=== PATIENT | male | born 1955 | race Caucasian/White ===

== ENCOUNTER 2017-04-27 12:22 | Inpatient (IN) | payer OTHER, MEDICAID ==
[2017-04-23 08:36] VITALS: BMI 28.5
[2017-04-27] MEDS ORDERED: cefTRIAXone IV 1 gm in Dextros 50 ML IVPB ONE (16:05)
[2017-04-27] MEDS ORDERED: Iohexol 240 (50 ml) ONE (16:05)
[2017-04-27] MEDS ORDERED: Lactated Ringer's 1,000 ML IV ONE ×2 (16:08→17:57)
[2017-04-27] MEDS ORDERED: Propofol 10 mg/ml Inj (20 ML) ONE (16:08)
[2017-04-27] MEDS: HYDROmorphone 0.5 mg/0.5 ml ISec IVP PRN ×4 (17:41→18:32)
[2017-04-27] MEDS: Oxycodone/Acetaminophen 5/325 mg Tab PO PRN (19:41)
[2017-04-27] MEDS ORDERED: HYDROmorphone 0.5 mg/0.5 ml ISec IVP STA (19:55)
[2017-04-27] MEDS ORDERED: Dextrose 5%/0.45% NS 1,000 ML IV ONE (20:00)
--- NOTE | 2017-04-27 20:53 | CP.PCM.CON ---
Addendum entered and electronically signed by Mariia Warner 04/28/17 02:01: Please note patient was started on Crestor 5mg po hs not 10mg Original Note: <Mariia Warner - Last Filed: 04/28/17 01:07> History of Present Illness - History of Present Illness History of Present Illness: HPI: 61 year old male PMHx CAD s/p 3 stents, HTN, IDDM, bladder tumor, hematuria , and elevated PSA POD#0 retrograde cystoscopy with stent insertion and transurethral resection of bladder. Medicine was consulted for management of DM2 and cardiac history. Patient reports postop abdominal pain that radiates to both flanks and his testicles. Patient also reports some nausea and vomiting and had one episode of nonbloody nonbilious emesis post op. He also reports some back pain which is constant as patient has 3 disc herniations. He reports a fullness in his lower abdomen and feels like everything he is taking in [IVF, PO drinks] is not coming out. He reports the postop pain is 6-7/10 and sharp and constant. Patient has a santos in place that has drained 150cc serosanguinous fluid and Dr. Espinal is aware. On ROS patient denied fever, chills, headache, dizziness, lightheadedness, blurry vision, ear pain, sore throat, dysphagia, chest pain, palpitations, SOB, cough, diarrhea, constipation , pain/swelling in legs bilaterally, bruising, bleeding, recent travel, recent sickness, sick contacts, change in weight, change in appetite. PMD: Dr. Matamoros in [place] PMH: CAD, HTN, IDDM, bladder tumor, hematuria, elevated PSA Surgical Hx: 3 cardiac stents placed, most recent stent placed in 09/2016 Family Hx: Father - CVA/TN? patient unsure Social Hx: Denies alcohol, tobacco, or illicit drug use. Used to smoke 3 years ago since he was 23 years old and would smoke 10cigarettes/day. Does not work and lives with . Allergies: NKDA Medication: ASA [on hold], Plavix [on hold], Novolog, unsure of other medications. Last hospitalized: March 2017 at [facility] for clogged urinary catheter and hematuria. CT Abd/Pelvis showed bladder mass and lesion on R kidney. Patient was discharged from the ED the day prior to arrival with Keflex and follow up with Dr. Espinal, however, he returned due to urine leak around catheter. Patient was taken to the OR for cystoscopy by Urology, Dr. Espinal, who replaced santos and kept patient overnight for monitoring. Santos output cleared up. Patient was asked to hold Asa/Plavix until follow up with Dr. 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 Patient hospital course was complicated with him having purulent drainage expressed from around the catheter. Patient was discharged on Cipro 500mg po bid for 7 days for lower UTI and Percocet for pain and told to follow up with Dr. Espinal. Review of Systems - Constitutional Constitutional: As Per HPI. absent: Chills, Fever, Headache - EENT Eyes: As Per HPI. absent: Blurred Vision Ears: As Per HPI. absent: Ear Pain, Dizziness Nose/Mouth/Throat: As Per HPI. absent: Dysphagia, Sore Throat - Cardiovascular Cardiovascular: As Per HPI. absent: Chest Pain, Dyspnea, Edema, Palpitations - Respiratory Respiratory: As Per HPI. absent: Cough, Dyspnea on Exertion - Gastrointestinal Gastrointestinal: As Per HPI, Abdominal Pain, Nausea, Vomiting (1 episode- nonbloody nonbilious). absent: Constipation, Cramping, Diarrhea - Genitourinary Genitourinary: As Per HPI, Flank Pain, Hematuria, Bladder Distension. absent: Pyuria Additional comments: floey in place ~150cc serosangunious fluid - Musculoskeletal Musculoskeletal: As Per HPI. absent: Numbness, Tingling - Integumentary Integumentary: As Per HPI. absent: Dry Skin, Rash - Neurological Neurological: As Per HPI. absent: Dizziness, Numbness, Tingling - Psychiatric Psychiatric: As Per HPI. absent: Anxiety, Depression - Endocrine Endocrine: As Per HPI. absent: Polydipsia, Polyphagia, Polyuria - Hematologic/Lymphatic Hematologic: As Per HPI. absent: Easy Bruising, Lymphadenopathy Past Patient History - Past Medical History & Family History Past Medical History?: Yes - Past Social History Smoking Status: Never Smoked - CARDIAC Hx Cardiac Disorders: Yes (CAD STENTS LAST INSERTION SEP 2016) Hx Heart Attack: Yes (2000 PER PT) Hx Hypercholesterolemia: Yes - HEENT Hx HEENT Problems: Yes Hx Cataracts: Yes (BILAT IOL) - ENDOCRINE/METABOLIC Hx Endocrine Disorders: Yes Hx Diabetes Mellitus Type 2: Yes - GENITOURINARY/GYNECOLOGICAL Hx Genitourinary Disorders: Yes (BLADDER TUMOR) Hx Hematuria: Yes - SURGICAL HISTORY Hx Surgeries: Yes Hx Cataract Extraction: Yes Hx Cardiac Catheterization: Yes Hx Coronary Stent: Yes Other/Comment: CYSTOSCOPY - ANESTHESIA Hx Anesthesia: Yes Hx Anesthesia Reactions: No Hx Malignant Hyperthermia: No Has any member of the family had a problem w/ anesthesia?: No Meds Allergies/Adverse Reactions: Allergies Allergy/AdvReac Type Severity Reaction Status Date / Time No Known Allergies Allergy Unverified 04/01/17 09:15 - Medications Medications: Current Medications Dextrose/Sodium Chloride (Dextrose 5%/0.45% Ns 1000 Ml) 1,000 mls @ 100 mls/hr IV .Q10H [facility] Oxycodone/Acetaminophen (Percocet 5/325 Mg Tab) 1 tab PO Q6H PRN PRN Reason: Bladder Spasm Stop: 04/30/17 17:22 Last Admin: 04/27/17 19:41 Dose: 1 tab Physical Exam - Constitutional Appears: Non-toxic, In Acute Distress (secondary to abd pain/fullness) - Head Exam Head Exam: ATRAUMATIC, NORMAL INSPECTION, NORMOCEPHALIC - Eye Exam Eye Exam: EOMI, Normal appearance, PERRL. absent: Conjunctival injection, Scleral icterus Pupil Exam: NORMAL ACCOMODATION - ENT Exam ENT Exam: Mucous Membranes Moist - Neck Exam Neck exam: Positive for: Full Rom, Normal Inspection. Negative for: Lymphadenopathy, Tenderness - Respiratory Exam Respiratory Exam: Clear to Auscultation Bilateral, NORMAL BREATHING PATTERN. absent: Accessory Muscle Use, Rales, Rhonchi, Wheezes - Cardiovascular Exam Cardiovascular Exam: Tachycardia, REGULAR RHYTHM, +S1, +S2. absent: Systolic Murmur - GI/Abdominal Exam GI & Abdominal Exam: Normal Bowel Sounds, Soft, Tenderness (lower abdomen b/l). absent: Distended, Firm, Guarding, Rigid - Rectal Exam Rectal Exam: Deferred - Exam Additional comments: santos in place drained 150cc serosanguinous fluid - Extremities Exam Extremities exam: Positive for: normal capillary refill, normal inspection, pedal pulses present. Negative for: pedal edema, tenderness - Back Exam Back exam: NORMAL INSPECTION. absent: rash noted - Neurological Exam Neurological exam: Alert, Oriented x3 - Psychiatric Exam Psychiatric exam: Normal Affect, Normal Mood - Skin Skin Exam: Dry, Intact, Normal Color, Warm Results - Vital Signs Recent Vital Signs: Last Vital Signs Temp 97.6 F 04/27/17 18:45 Pulse 78 04/27/17 19:15 Resp 17 04/27/17 19:15 BP 142/94 H 04/27/17 19:15 Pulse Ox 100 04/27/17 19:15 - Labs Labs: Laboratory Results - last 24 hr 04/27/17 04/27/17 04/27/17 13:07 19:07 19:22 POC Glucose (mg/dL) 75 60 L 64 L 04/27/17 04/27/17 19:46 20:45 POC Glucose (mg/dL) 93 190 H Assessment & Plan - Assessment and Plan (Free Text) Assessment: 61 year old male PMHx CAD s/p 3 stents, HTN, IDDM, bladder tumor, hematuria, and elevated PSA POD#0 retrograde cystoscopy with stent insertion and transurethral resection of bladder. Plan: Bladder tumor and hematuria -POD#0 retrograde cystoscopy with stent insertion and transurethral resection of bladder -f/u abdominal x-ray -Managed by Dr. Espinal -Pain meds as per Dr. Espinal Dilaudid 2mg sc q4 prn pain Oxycodone 1 tab po q6 prn pain Hx CAD s/p 3 stents -ASA and plavix on hold -f/u lipid panel -f/u AM labs -Crestor 10mg po hs -Norvasc 5mg po daily Hx HTN -Norvasc 5mg po daily -Monitor BP Hx IDDM -Accucheck -RISS -Lantus 60U -D5NS @ 100cc/hr -Neurontin 300mg po daily -f/u HgbA1c Hx elevated PSA -f/u AM PSA PPX -SCDs -Pepcid 20mg po bid -VTE ppx on hold -Moderate consistent carb diet -Zofran 4mg ivp q6 prn nausea/vomiting Plan discussed with Dr. Archana Warner PGY1 <Nuno Magaña - Last Filed: 04/28/17 06:27> Meds - Medications Medications: Current Medications Amlodipine Besylate (Norvasc) 5 mg PO DAILY [facility] Famotidine (Pepcid) 20 mg PO BID [facility] Gabapentin (Neurontin) 300 mg PO DAILY [facility] Hydromorphone HCl (Dilaudid) 2 mg SC Q4H PRN PRN Reason: Pain, moderate (4-7) Last Admin: 04/28/17 03:18 Dose: 2 mg Dextrose/Sodium Chloride (Dextrose 5%/0.45% Ns 1000 Ml) 1,000 mls @ 100 mls/hr IV .Q10H [facility] Last Admin: 04/28/17 03:19 Dose: 100 mls/hr Insulin Aspart (Novolog) 0 unit SC ACHS [facility] PRN Reason: Protocol Insulin Glargine (Lantus) 60 unit SC HS PRN PRN Reason: Serum glucose Ondansetron HCl (Zofran Inj) 4 mg IVP Q6H PRN PRN Reason: Nausea/Vomiting Oxycodone/Acetaminophen (Percocet 5/325 Mg Tab) 1 tab PO Q6H PRN PRN Reason: Bladder Spasm Stop: 04/30/17 17:22 Last Admin: 04/27/17 19:41 Dose: 1 tab Rosuvastatin Calcium (Crestor) 5 mg PO HS [facility] Results - Vital Signs Recent Vital Signs: Last Vital Signs Temp 98.4 F 04/27/17 23:15 Pulse 68 04/27/17 23:15 Resp 20 04/27/17 23:15 BP 159/78 H 04/27/17 23:15 Pulse Ox 95 04/27/17 23:15 - Labs Result Diagrams: 04/28/17 01:18 04/28/17 01:18 Labs: Laboratory Results - last 24 hr 04/27/17 04/27/17 04/27/17 13:07 19:07 19:22 WBC RBC Hgb Hct MCV MCH MCHC RDW Plt Count MPV Neut % (Auto) Lymph % (Auto) Eagle % (Auto) Eos % (Auto) Baso % (Auto) Neut # Lymph # Eagle # Eos # Baso # Neutrophils % (Manual) Lymphocytes % (Manual) Monocytes % (Manual) Platelet Estimate Poikilocytosis (manual Anisocytosis (manual) Microcytosis (manual) Sodium Potassium Chloride Carbon Dioxide Anion Gap BUN Creatinine Est GFR ( Amer) Est GFR (Non-Af Amer) POC Glucose (mg/dL) 75 60 L 64 L Random Glucose Calcium Phosphorus Magnesium Total Bilirubin AST ALT Alkaline Phosphatase Total Protein Albumin Globulin Albumin/Globulin Ratio 04/27/17 04/27/17 04/27/17 19:46 20:45 23:20 WBC RBC Hgb Hct MCV MCH MCHC RDW Plt Count MPV Neut % (Auto) Lymph % (Auto) Eagle % (Auto) Eos % (Auto) Baso % (Auto) Neut # Lymph # Eagle # Eos # Baso # Neutrophils % (Manual) Lymphocytes % (Manual) Monocytes % (Manual) Platelet Estimate Poikilocytosis (manual Anisocytosis (manual) Microcytosis (manual) Sodium Potassium Chloride Carbon Dioxide Anion Gap BUN Creatinine Est GFR ( Amer) Est GFR (Non-Af Amer) POC Glucose (mg/dL) 93 190 H 215 H Random Glucose Calcium Phosphorus Magnesium Total Bilirubin AST ALT Alkaline Phosphatase Total Protein Albumin Globulin Albumin/Globulin Ratio 04/28/17 04/28/17 04/28/17 01:18 01:18 03:23 WBC 10.1 D RBC 4.54 Hgb 10.8 L D Hct 33.9 L MCV 74.7 L D MCH 23.8 L MCHC 31.9 L RDW 17.7 H Plt Count 249 MPV 9.0 Neut % (Auto) 84.3 H Lymph % (Auto) 9.9 L Eagle % (Auto) 5.5 Eos % (Auto) 0.2 Baso % (Auto) 0.1 Neut # 8.5 H Lymph # 1.0 Eagle # 0.6 Eos # 0.0 Baso # 0.0 Neutrophils % (Manual) 82 H Lymphocytes % (Manual) 13 L Monocytes % (Manual) 5 Platelet Estimate Normal Poikilocytosis (manual Slight Anisocytosis (manual) Moderate Microcytosis (manual) Slight Sodium 133 Potassium 4.3 Chloride 100 Carbon Dioxide 25 Anion Gap 13 BUN 12 Creatinine 0.8 Est GFR ( Amer) > 60 Est GFR (Non-Af Amer) > 60 POC Glucose (mg/dL) 251 H Random Glucose 196 H Calcium 8.5 L Phosphorus 3.3 Magnesium 1.5 L Total Bilirubin 0.7 AST 18 ALT 27 Alkaline Phosphatase 63 Total Protein 6.9 Albumin 3.7 Globulin 3.1 Albumin/Globulin Ratio 1.2 Assessment & Plan - Date & Time Date: 04/28/17 (I have seen and examined the patient. I agree with the findings and plan of care as documented by Dr. Warner. Patient with bladder tumor. S/P procedure by Dr. Espinal. Consult for history of CAD, hypertension , and diabetes. Continue home meds. Accucheck. NISS. Monitor for acute changes.) Time: 06:26 Attending/Attestation - Attestation I have personally seen and examined this patient.: Yes I have fully participated in the care of the patient.: Yes I have reviewed all pertinent clinical information: Yes
[2017-04-28] MEDS ORDERED: (Lantus) Insulin Glargine, Recombinant SC PRN (00:27)
[2017-04-28 01:25] LABS: BASO % 0.1 % (0.0-2.0); EOS % 0.2 % (0.0-4.0); HEMATOCRIT 33.9 % (35.0-51.0); LYMPH % 9.9 % (20.0-40.0); MEAN CELL VOLUME 74.7 fL (80.0-94.0); MEAN CORPUSCULAR HEMOGLOBIN 23.8 pg (27.0-31.0); MEAN CORPUSCULAR HGB CONC 31.9 g/dL (33.0-37.0); MONO # 0.6 K/uL (0.0-0.8); MONO % 5.5 % (0.0-10.0); NRBC % 0.1 % (0.0-2.0); PLATELET COUNT 249 K/uL (130-400); RED CELL DISTRIBUTION WIDTH 17.7 % (11.5-14.5); WHITE BLOOD COUNT 10.1 K/uL (4.8-10.8)
[2017-04-28 01:31] LABS: CHLORIDE 100 mmol/L (98-107); SODIUM 133 mmol/L (132-148)
[2017-04-28 01:32] LABS: POTASSIUM 4.3 mmol/L (3.6-5.2)
[2017-04-28 01:34] LABS: ALB/GLOB RATIO 1.2 (1.0-2.1); ALKALINE PHOSPHATASE 63 U/L (38-126); AST/SGOT 18 U/L (17-59); BILIRUBIN,TOTAL 0.7 mg/dL (0.2-1.3); BLOOD UREA NITROGEN 12 mg/dL (9-20); CARBON DIOXIDE 25 mmol/L (22-30); GFR AFRICAN-AMERICAN > 60; GLUCOSE,RANDOM 196 mg/dL (75-110); PHOSPHOROUS 3.3 mg/dL (2.5-4.5); TOTAL PROTEIN 6.9 g/dL (6.3-8.3)
[2017-04-28 01:35] LABS: ALT/SGPT 27 U/L (21-72); CALCIUM 8.5 mg/dl (8.6-10.4); MAGNESIUM 1.5 mg/dL (1.6-2.3)
[2017-04-28 02:07] LABS: NEUTROPHIL 82 % (50-75); TOTAL CELLS COUNTED 100
[2017-04-28] MEDS: Dextrose 5%/0.45% NS 1,000 ML IV SCH ×2 (03:19→13:52)
[2017-04-28 07:31] LABS: BASO % 0.4 % (0.0-2.0); EOS # 0.1 K/uL (0.0-0.7); EOS % 0.6 % (0.0-4.0); HEMATOCRIT 32.5 % (35.0-51.0); LYMPH # 1.7 K/uL (1.0-4.3); LYMPH % 18.9 % (20.0-40.0); MEAN CELL VOLUME 74.5 fL (80.0-94.0); MEAN CORPUSCULAR HEMOGLOBIN 24.2 pg (27.0-31.0); MEAN CORPUSCULAR HGB CONC 32.4 g/dL (33.0-37.0); MEAN PLATELET VOLUME 9.2 fL (7.2-11.7); MONO # 0.7 K/uL (0.0-0.8); MONO % 7.7 % (0.0-10.0); NRBC % 0.1 % (0.0-2.0); RED CELL DISTRIBUTION WIDTH 17.6 % (11.5-14.5); WHITE BLOOD COUNT 9.1 K/uL (4.8-10.8)
[2017-04-28 08:09] LABS: SODIUM 135 mmol/L (132-148)
[2017-04-28 08:11] LABS: CARBON DIOXIDE 25 mmol/L (22-30); CHOLESTEROL 156 mg/dL (0-199); GFR AFRICAN-AMERICAN > 60
[2017-04-28 08:12] LABS: ALB/GLOB RATIO 1.1 (1.0-2.1); ALKALINE PHOSPHATASE 55 U/L (38-126); ALT/SGPT 18 U/L (21-72); AST/SGOT 19 U/L (17-59); BILIRUBIN,TOTAL 0.5 mg/dL (0.2-1.3); BLOOD UREA NITROGEN 10 mg/dL (9-20); GLUCOSE,RANDOM 202 mg/dL (75-110); PHOSPHOROUS 3.7 mg/dL (2.5-4.5); TOTAL PROTEIN 6.6 g/dL (6.3-8.3)
[2017-04-28] MEDS: (Novolog) Insulin Aspart, Recombinant 100 u/ml 10 ml vial SC SCH ×4 (08:12→21:12)
[2017-04-28 08:13] LABS: CALCIUM 8.5 mg/dl (8.6-10.4); MAGNESIUM 1.7 mg/dL (1.6-2.3)
[2017-04-28 08:15] LABS: CHLORIDE 99 mmol/L (98-107)
[2017-04-28 08:26] LABS: PROSTATE SPECIFIC ANTIGEN 4.92 ng/mL (0.00-4.0)
[2017-04-28] MEDS ORDERED: POLYETHYLENE GLYCOL 3350 17 GM/Dose PACKET PO ONE (08:30)
--- NOTE | 2017-04-28 09:06 | CP.PCM.PN ---
<Idalia Wellingtonsedricknikko - Last Filed: 04/28/17 16:14> Subjective - Date & Time of Evaluation Date of Evaluation: 04/28/17 Time of Evaluation: 07:11 - Subjective Subjective: PGY 1 Medicine Note- Dr. Jones's service Pt seen and examined in no acute distress. Patient reiterated that he was having some pain in left groin region that radiated to the testicles. He states that he has pain every time he attempts to urinate. His urine was initially red when the santos was first inserted, but states that the urine cleared up to a yellow color overnight. He feels that the santos is exacerbating his pain. On initial examination around 7 am, patient denied discharge however admitted that he had some yellow-whitish discharge around 10:30am. He does not have much of an appetite. Patient denied subjective fevers or chills, headaches, chest pain, palpitations, nausea, vomiting, diarrhea, paresthesias or constipation at this time. Objective - Vital Signs/Intake and Output Vital Signs (last 24 hours): Temp Pulse Resp BP Pulse Ox 99.4 F 78 18 172/68 H 91 L 04/28/17 08:00 04/28/17 08:00 04/28/17 08:00 04/28/17 08:00 04/28/17 08:00 Intake and Output: 04/28/17 04/28/17 06:59 18:59 Intake Total 650 Output Total 2125 Balance -1475 - Medications Medications: Current Medications Amlodipine Besylate (Norvasc) 5 mg PO DAILY [facility] Famotidine (Pepcid) 20 mg PO BID [facility] Gabapentin (Neurontin) 300 mg PO DAILY [facility] Hydromorphone HCl (Dilaudid) 2 mg IVP Q4H PRN PRN Reason: Pain, moderate (4-7) Last Admin: 04/28/17 08:55 Dose: 2 mg Dextrose/Sodium Chloride (Dextrose 5%/0.45% Ns 1000 Ml) 1,000 mls @ 100 mls/hr IV .Q10H [facility] Last Admin: 04/28/17 03:19 Dose: 100 mls/hr Insulin Aspart (Novolog) 0 unit SC ACHS [facility] PRN Reason: Protocol Last Admin: 04/28/17 08:12 Dose: 2 unit Insulin Glargine (Lantus) 60 unit SC HS PRN PRN Reason: Serum glucose Ondansetron HCl (Zofran Inj) 4 mg IVP Q6H PRN PRN Reason: Nausea/Vomiting Oxycodone/Acetaminophen (Percocet 5/325 Mg Tab) 1 tab PO Q6H PRN PRN Reason: Bladder Spasm Stop: 04/30/17 17:22 Last Admin: 04/27/17 19:41 Dose: 1 tab Rosuvastatin Calcium (Crestor) 5 mg PO HS [facility] - Labs Labs: 04/28/17 07:15 04/28/17 07:15 - Constitutional Appears: Non-toxic, No Acute Distress - Head Exam Head Exam: ATRAUMATIC, NORMAL INSPECTION, NORMOCEPHALIC - Eye Exam Eye Exam: EOMI, Normal appearance, PERRL Pupil Exam: NORMAL ACCOMODATION, PERRL - ENT Exam ENT Exam: Mucous Membranes Moist - Neck Exam Neck Exam: Full ROM - Respiratory Exam Respiratory Exam: Clear to Ausculation Bilateral, NORMAL BREATHING PATTERN. absent: Wheezes - Cardiovascular Exam Cardiovascular Exam: +S1, +S2 - GI/Abdominal Exam GI & Abdominal Exam: Soft, Tenderness (suprapubic), Normal Bowel Sounds - Exam Exam: Testicular Tenderness (santos in place), Uretheral Discharge (yellow- white) - Extremities Exam Extremities Exam: Full ROM - Back Exam Back Exam: Full ROM - Neurological Exam Neurological Exam: Alert, Awake, CN II-XII Intact, Oriented x3 Neuro motor strength exam: Left Upper Extremity: 5, Right Upper Extremity: 5, Left Lower Extremity: 5, Right Lower Extremity: 5 - Psychiatric Exam Psychiatric exam: Normal Affect, Normal Mood - Skin Skin Exam: Dry, Intact, Normal Color, Warm Assessment and Plan - Assessment and Plan (Free Text) Assessment: Bladder tumor and hematuria -POD#1 retrograde cystoscopy with stent insertion and transurethral resection of bladder -Abdominal x-ray- normal filling of collecting systems with unremarkable ureters. Satisfactory postoperative status as stated in report. refer to complete report. -Patient had complaints of some discharge however Dr. Espinal made aware and acknowledged that it is a temporary presentation associated post-op. -Santos to be removed by Dr. Espinal- F/U recommendations -Pain meds as per Dr. Espinal Dilaudid 2mg IV q4 prn pain Oxycodone 1 tab po q6 prn pain Monitor urine output Monitor for bowel movements. Hx CAD s/p 3 stents -ASA and plavix on hold bc of hematuria -Lipid panel WNL -Crestor 5mg po hs -Norvasc 5mg po daily -f/u AM labs Hx HTN -Norvasc 5mg po daily -Monitor BP Hx IDDM -Accucheck -RISS -Lantus 60U -D5NS @ 100cc/hr -Neurontin 300mg po daily -HgbA1c 8.7 Hx elevated PSA -PSA 4.92 (elevated) however likely elevated as a result of biopsy procedures over past few weeks. PPX -SCDs -Pepcid 20mg po bid -VTE ppx on hold -Moderate consistent carb diet -Zofran 4mg IV q6 prn nausea/vomiting <Sandra Jones V - Last Filed: 04/30/17 05:25> Objective - Vital Signs/Intake and Output Vital Signs (last 24 hours): Temp Pulse Resp BP Pulse Ox 100.0 F H 81 20 126/76 96 04/29/17 23:10 04/29/17 23:10 04/29/17 23:10 04/29/17 23:10 04/29/17 23:10 Intake and Output: 04/29/17 04/30/17 18:59 06:59 Intake Total 1200 1300 Output Total 1300 550 Balance -100 750 - Medications Medications: Current Medications Famotidine (Pepcid) 20 mg PO BID [facility] Last Admin: 04/29/17 17:55 Dose: 20 mg Gabapentin (Neurontin) 300 mg PO DAILY [facility] Last Admin: 04/29/17 10:09 Dose: 300 mg Hydromorphone HCl (Dilaudid) 2 mg IVP Q4H PRN PRN Reason: Pain, moderate (4-7) Last Admin: 04/30/17 01:21 Dose: 2 mg Dextrose/Sodium Chloride (Dextrose 5%/0.45% Ns 1000 Ml) 1,000 mls @ 100 mls/hr IV .Q10H [facility] Last Admin: 04/30/17 02:45 Dose: 100 mls/hr Insulin Aspart (Novolog) 0 unit SC ACHS [facility] PRN Reason: Protocol Last Admin: 04/29/17 22:00 Dose: Not Given Insulin Glargine (Lantus) 60 unit SC HS PRN PRN Reason: Serum glucose Lisinopril (Zestril) 5 mg PO DAILY [facility] Last Admin: 04/29/17 10:09 Dose: 5 mg Ondansetron HCl (Zofran Inj) 4 mg IVP Q6H PRN PRN Reason: Nausea/Vomiting Oxycodone/Acetaminophen (Percocet 5/325 Mg Tab) 1 tab PO Q6H PRN PRN Reason: Bladder Spasm Stop: 04/30/17 17:22 Last Admin: 04/28/17 12:51 Dose: 1 tab Rosuvastatin Calcium (Crestor) 10 mg PO HS [facility] Last Admin: 04/29/17 21:59 Dose: 10 mg - Labs Labs: 04/29/17 05:21 04/29/17 05:21 Attending/Attestation - Attestation I have personally seen and examined this patient.: Yes I have fully participated in the care of the patient.: Yes I have reviewed all pertinent clinical information, including history, physical exam and plan: Yes Notes (Text): This is late computer entry for 04/28/17. Patient seen, examined and case discussed with day-time resident. Patient seen this morning, appears upset in regards to pain associated with Santos, discuss with patient he does have pain prns to help alleivated his pain. Discussed with nursing to help patient with pain control. Following Pain PRN, blood pressure is controlled, discussed with nursing. Patient is also concerned about penile discharge will differ to urology. Patient is currently off Aspirin/Plavix; patient is post-urologic procedure Bladder tumor and hemturia-->primary management per urologic, post surgical management defer to urology. Patient noted cardiac hx, in 2016 and confirmed. Medicinne is consulted on patient's medical history which includes CAD, HTN, and DM. Assessment/Plan 1)Bladder tumor and hematuria -Urology on board--->primary management -POD#1 retrograde cystoscopy with stent insertion and transurethral resection of bladder -Abdominal x-ray- normal filling of collecting systems with unremarkable ureters. Satisfactory postoperative status as stated in report. refer to complete report. -Patient had complaints of some discharge however Dr. Espinal made aware and acknowledged that it is a temporary presentation associated post-op. -Santos to be removed by Dr. Espinal- F/U recommendations -Pain meds as per Dr. Espinal Dilaudid 2mg IV q4 prn pain Oxycodone 1 tab po q6 prn pain Monitor urine output Monitor for bowel movements. 2)Hx CAD s/p 3 stents -ASA and plavix on hold bc of hematuria-->will discuss with urology when can patient start this post-procedure -Lipid panel WNL -Crestor 5mg po hs -Norvasc 5mg po daily -f/u AM labs 3)Hx HTN -Norvasc 5mg po daily -Monitor BP -influenced by pain 4) Hx IDDM -Accucheck -RISS -Lantus 60U -D5NS @ 100cc/hr -Neurontin 300mg po daily -HgbA1c 8.7 5) Hx elevated PSA -PSA 4.92 (elevated) however likely elevated as a result of biopsy procedures over past few weeks. 6) PPX -SCDs -Pepcid 20mg po bid -VTE ppx on hold->per urology to determine post-operative -Moderate consistent carb diet -Zofran 4mg IV q6 prn nausea/vomiting
[2017-04-28] MEDS: Oxycodone/Acetaminophen 5/325 mg Tab PO PRN (12:51)
--- NOTE | 2017-04-28 14:35 | PCM.URO ---
Urology Progress Note - Objective Lab Results Last 24 Hours: Laboratory Results - last 24 hr 04/27/17 04/27/17 04/27/17 19:07 19:22 19:46 WBC RBC Hgb Hct MCV MCH MCHC RDW Plt Count MPV Neut % (Auto) Lymph % (Auto) [place] % (Auto) Eos % (Auto) Baso % (Auto) Neut # Lymph # [place] # Eos # Baso # Neutrophils % (Manual) Lymphocytes % (Manual) Monocytes % (Manual) Platelet Estimate Poikilocytosis (manual Anisocytosis (manual) Microcytosis (manual) Sodium Potassium Chloride Carbon Dioxide Anion Gap BUN Creatinine Est GFR ( Amer) Est GFR (Non-Af Amer) POC Glucose (mg/dL) 60 L 64 L 93 Random Glucose Hemoglobin A1c Calcium Phosphorus Magnesium Total Bilirubin AST ALT Alkaline Phosphatase Total Protein Albumin Globulin Albumin/Globulin Ratio Triglycerides Cholesterol LDL Cholesterol Direct HDL Cholesterol Prostate Specific Ag 04/27/17 04/27/17 04/28/17 20:45 23:20 01:18 WBC 10.1 D RBC 4.54 Hgb 10.8 L D Hct 33.9 L MCV 74.7 L D MCH 23.8 L MCHC 31.9 L RDW 17.7 H Plt Count 249 MPV 9.0 Neut % (Auto) 84.3 H Lymph % (Auto) 9.9 L [place] % (Auto) 5.5 Eos % (Auto) 0.2 Baso % (Auto) 0.1 Neut # 8.5 H Lymph # 1.0 [place] # 0.6 Eos # 0.0 Baso # 0.0 Neutrophils % (Manual) 82 H Lymphocytes % (Manual) 13 L Monocytes % (Manual) 5 Platelet Estimate Normal Poikilocytosis (manual Slight Anisocytosis (manual) Moderate Microcytosis (manual) Slight Sodium Potassium Chloride Carbon Dioxide Anion Gap BUN Creatinine Est GFR ( Amer) Est GFR (Non-Af Amer) POC Glucose (mg/dL) 190 H 215 H Random Glucose Hemoglobin A1c Calcium Phosphorus Magnesium Total Bilirubin AST ALT Alkaline Phosphatase Total Protein Albumin Globulin Albumin/Globulin Ratio Triglycerides Cholesterol LDL Cholesterol Direct HDL Cholesterol Prostate Specific Ag 04/28/17 04/28/17 04/28/17 01:18 03:23 07:05 WBC RBC Hgb Hct MCV MCH MCHC RDW Plt Count MPV Neut % (Auto) Lymph % (Auto) [place] % (Auto) Eos % (Auto) Baso % (Auto) Neut # Lymph # [place] # Eos # Baso # Neutrophils % (Manual) Lymphocytes % (Manual) Monocytes % (Manual) Platelet Estimate Poikilocytosis (manual Anisocytosis (manual) Microcytosis (manual) Sodium 133 Potassium 4.3 Chloride 100 Carbon Dioxide 25 Anion Gap 13 BUN 12 Creatinine 0.8 Est GFR ( Amer) > 60 Est GFR (Non-Af Amer) > 60 POC Glucose (mg/dL) 251 H 207 H Random Glucose 196 H Hemoglobin A1c Calcium 8.5 L Phosphorus 3.3 Magnesium 1.5 L Total Bilirubin 0.7 AST 18 ALT 27 Alkaline Phosphatase 63 Total Protein 6.9 Albumin 3.7 Globulin 3.1 Albumin/Globulin Ratio 1.2 Triglycerides Cholesterol LDL Cholesterol Direct HDL Cholesterol Prostate Specific Ag 04/28/17 04/28/17 04/28/17 07:15 07:15 07:15 WBC 9.1 RBC 4.36 L Hgb 10.5 L Hct 32.5 L MCV 74.5 L MCH 24.2 L MCHC 32.4 L RDW 17.6 H Plt Count 253 MPV 9.2 Neut % (Auto) 72.4 Lymph % (Auto) 18.9 L [place] % (Auto) 7.7 Eos % (Auto) 0.6 Baso % (Auto) 0.4 Neut # 6.6 Lymph # 1.7 [place] # 0.7 Eos # 0.1 Baso # 0.0 Neutrophils % (Manual) Lymphocytes % (Manual) Monocytes % (Manual) Platelet Estimate Poikilocytosis (manual Anisocytosis (manual) Microcytosis (manual) Sodium 135 Potassium 4.0 Chloride 99 Carbon Dioxide 25 Anion Gap 15 BUN 10 Creatinine 0.8 Est GFR ( Amer) > 60 Est GFR (Non-Af Amer) > 60 POC Glucose (mg/dL) Random Glucose 202 H Hemoglobin A1c 8.7 H Calcium 8.5 L Phosphorus 3.7 Magnesium 1.7 Total Bilirubin 0.5 AST 19 ALT 18 L D Alkaline Phosphatase 55 Total Protein 6.6 Albumin 3.5 Globulin 3.2 Albumin/Globulin Ratio 1.1 Triglycerides 119 Cholesterol 156 LDL Cholesterol Direct 112 HDL Cholesterol 31 Prostate Specific Ag 4.92 H 04/28/17 11:25 WBC RBC Hgb Hct MCV MCH MCHC RDW Plt Count MPV Neut % (Auto) Lymph % (Auto) [place] % (Auto) Eos % (Auto) Baso % (Auto) Neut # Lymph # [place] # Eos # Baso # Neutrophils % (Manual) Lymphocytes % (Manual) Monocytes % (Manual) Platelet Estimate Poikilocytosis (manual Anisocytosis (manual) Microcytosis (manual) Sodium Potassium Chloride Carbon Dioxide Anion Gap BUN Creatinine Est GFR ( Amer) Est GFR (Non-Af Amer) POC Glucose (mg/dL) 251 H Random Glucose Hemoglobin A1c Calcium Phosphorus Magnesium Total Bilirubin AST ALT Alkaline Phosphatase Total Protein Albumin Globulin Albumin/Globulin Ratio Triglycerides Cholesterol LDL Cholesterol Direct HDL Cholesterol Prostate Specific Ag Intake & Output: Intake & Output 04/27/17 04/28/17 04/28/17 18:59 06:59 18:59 Intake Total 500 650 Output Total 300 2125 Balance 200 -1475 Intake: IV 500 500 Oral 150 Output: Urine 300 0 2-way Urethral 1700 Stool 0 Emesis 75 Other: Voiding Method Indwelling Catheter Vital Signs: Vital Signs - 24 hr 04/27/17 04/27/17 04/27/17 17:24 17:45 18:00 Temperature 96.5 F L Pulse Rate 86 87 84 Respiratory 15 15 12 Rate Blood Pressure 171/96 H 177/104 H 172/98 H O2 Sat by Pulse 100 100 100 Oximetry 04/27/17 04/27/17 04/27/17 18:15 18:30 18:45 Temperature 97.6 F Pulse Rate 78 78 76 Respiratory 14 18 19 Rate Blood Pressure 174/101 H 184/93 H 158/91 H O2 Sat by Pulse 100 100 100 Oximetry 04/27/17 04/27/17 04/27/17 19:00 19:15 19:30 Temperature Pulse Rate 78 78 67 Respiratory 17 17 13 Rate Blood Pressure 145/88 142/94 H 163/88 H O2 Sat by Pulse 100 100 99 Oximetry 04/27/17 04/27/17 04/27/17 19:45 20:00 20:15 Temperature 98.7 F Pulse Rate 65 64 70 Respiratory 17 14 15 Rate Blood Pressure 178/94 H 144/77 153/70 H O2 Sat by Pulse 100 100 100 Oximetry 04/27/17 04/27/17 04/27/17 20:30 21:50 23:15 Temperature 98.2 F 98.4 F Pulse Rate 74 67 68 Respiratory 19 20 20 Rate Blood Pressure 153/79 H 172/82 H 159/78 H O2 Sat by Pulse 90 L 96 95 Oximetry 04/28/17 04/28/17 04/28/17 07:30 08:00 08:55 Temperature 99.7 F H 99.4 F Pulse Rate 87 78 74 Respiratory 18 18 Rate Blood Pressure 150/88 172/68 H 153/78 H O2 Sat by Pulse 95 91 L Oximetry 04/28/17 04/28/17 10:06 12:48 Temperature 98.7 F 98.8 F Pulse Rate 82 80 Respiratory 20 20 Rate Blood Pressure 131/76 154/75 H O2 Sat by Pulse 95 94 L Oximetry
--- NOTE | 2017-04-28 15:31 | RAD ---
HISTORY: HEMATURIA/ BLADDER TUMOR COMPARISON: No prior. FINDINGS: BOWEL: Normal. No obstruction. No free air. BONES: Normal. OTHER FINDINGS: Bilateral retrograde studies performed. Normal filling of the collecting systems. Unremarkable ureters as visualized. Double-J stent catheters identified at the conclusion of the procedure in good position alignment. IMPRESSION: Satisfactory postoperative status.
[2017-04-29] MEDS: Dextrose 5%/0.45% NS 1,000 ML IV SCH ×4 (05:00→22:03)
[2017-04-29 06:19] LABS: BASO % 0.3 % (0.0-2.0); EOS # 0.1 K/uL (0.0-0.7); EOS % 0.9 % (0.0-4.0); HEMATOCRIT 34.7 % (35.0-51.0); LYMPH # 1.6 K/uL (1.0-4.3); LYMPH % 19.5 % (20.0-40.0); MEAN CELL VOLUME 74.8 fL (80.0-94.0); MEAN CORPUSCULAR HEMOGLOBIN 23.9 pg (27.0-31.0); MEAN CORPUSCULAR HGB CONC 31.9 g/dL (33.0-37.0); MEAN PLATELET VOLUME 9.2 fL (7.2-11.7); MONO # 0.9 K/uL (0.0-0.8); MONO % 10.5 % (0.0-10.0); RED CELL DISTRIBUTION WIDTH 17.6 % (11.5-14.5); WHITE BLOOD COUNT 8.3 K/uL (4.8-10.8)
[2017-04-29 06:55] LABS: CHLORIDE 99 mmol/L (98-107)
[2017-04-29 06:56] LABS: SODIUM 135 mmol/L (132-148)
[2017-04-29 06:58] LABS: ALB/GLOB RATIO 1.1 (1.0-2.1); AST/SGOT 18 U/L (17-59); BILIRUBIN,TOTAL 0.6 mg/dL (0.2-1.3); CARBON DIOXIDE 26 mmol/L (22-30); GFR AFRICAN-AMERICAN > 60; TOTAL PROTEIN 6.8 g/dL (6.3-8.3)
[2017-04-29 06:59] LABS: ALKALINE PHOSPHATASE 66 U/L (38-126); ALT/SGPT 18 U/L (21-72); BLOOD UREA NITROGEN 13 mg/dL (9-20); CALCIUM 8.7 mg/dl (8.6-10.4); GLUCOSE,RANDOM 244 mg/dL (75-110); MAGNESIUM 1.7 mg/dL (1.6-2.3); PHOSPHOROUS 2.9 mg/dL (2.5-4.5)
--- NOTE | 2017-04-29 08:06 | CP.PCM.PN ---
<Idalia Wellingtonsedricknikko - Last Filed: 04/29/17 14:56> Subjective - Date & Time of Evaluation Date of Evaluation: 04/29/17 Time of Evaluation: 06:11 - Subjective Subjective: PGY 1 Medicine Note- Dr. Jones's service Pt seen and examined in no acute distress. Patient states that he had suprapubic tenderness last night and was discovered to be retaining urine. A santos was inserted and patient was relieved. Approx 700cc of urine was collected. Patient denies pain at tiem of evaluation. He denies having bowel movements as well. Patient was able to provide a list of medications that he takes at home. present bedside confirming medications. Patient denied subjective fevers or chills, headaches, chest pain, palpitations, nausea, vomiting or paresthesias at this time. Objective - Vital Signs/Intake and Output Vital Signs (last 24 hours): Temp Pulse Resp BP Pulse Ox 98.7 F 103 H 20 150/85 95 04/28/17 23:10 04/28/17 23:10 04/28/17 23:10 04/28/17 23:10 04/28/17 23:10 Intake and Output: 04/29/17 04/29/17 06:59 18:59 Intake Total 1720 Output Total 2300 Balance -580 - Medications Medications: Current Medications Amlodipine Besylate (Norvasc) 5 mg PO DAILY [facility] Last Admin: 04/28/17 10:08 Dose: 5 mg Famotidine (Pepcid) 20 mg PO BID [facility] Last Admin: 04/28/17 17:36 Dose: 20 mg Gabapentin (Neurontin) 300 mg PO DAILY [facility] Last Admin: 04/28/17 10:08 Dose: 300 mg Hydromorphone HCl (Dilaudid) 2 mg IVP Q4H PRN PRN Reason: Pain, moderate (4-7) Last Admin: 04/29/17 07:18 Dose: 2 mg Dextrose/Sodium Chloride (Dextrose 5%/0.45% Ns 1000 Ml) 1,000 mls @ 100 mls/hr IV .Q10H [facility] Last Admin: 04/29/17 05:00 Dose: 100 mls/hr Insulin Aspart (Novolog) 0 unit SC ACHS [facility] PRN Reason: Protocol Last Admin: 04/28/17 21:12 Dose: Not Given Insulin Glargine (Lantus) 60 unit SC HS PRN PRN Reason: Serum glucose Ondansetron HCl (Zofran Inj) 4 mg IVP Q6H PRN PRN Reason: Nausea/Vomiting Oxycodone/Acetaminophen (Percocet 5/325 Mg Tab) 1 tab PO Q6H PRN PRN Reason: Bladder Spasm Stop: 04/30/17 17:22 Last Admin: 04/28/17 12:51 Dose: 1 tab Rosuvastatin Calcium (Crestor) 5 mg PO HS [facility] Last Admin: 04/28/17 21:53 Dose: 5 mg - Labs Labs: 04/29/17 05:21 04/29/17 05:21 - Constitutional Appears: Non-toxic, No Acute Distress - Head Exam Head Exam: ATRAUMATIC, NORMAL INSPECTION, NORMOCEPHALIC - Eye Exam Eye Exam: EOMI, Normal appearance, PERRL Pupil Exam: NORMAL ACCOMODATION - ENT Exam ENT Exam: Mucous Membranes Moist - Neck Exam Neck Exam: Full ROM - Respiratory Exam Respiratory Exam: NORMAL BREATHING PATTERN. absent: Wheezes - Cardiovascular Exam Cardiovascular Exam: +S1, +S2 - GI/Abdominal Exam GI & Abdominal Exam: Soft, Normal Bowel Sounds - Extremities Exam Extremities Exam: Full ROM, Normal Capillary Refill - Back Exam Back Exam: Full ROM - Neurological Exam Neurological Exam: Alert, Awake, Oriented x3 - Psychiatric Exam Psychiatric exam: Normal Affect, Normal Mood - Skin Skin Exam: Dry, Normal Color, Warm Assessment and Plan - Assessment and Plan (Free Text) Assessment: Bladder tumor and hematuria -POD#1 retrograde cystoscopy with stent insertion and transurethral resection of bladder -Abdominal x-ray- normal filling of collecting systems with unremarkable ureters. Satisfactory postoperative status as stated in report. Refer to complete report. -Patient had complaints of some discharge however Dr. Espinal made aware and acknowledged that it is a temporary presentation associated post-op. -Santos removed yesterday however re-inserted because patient was retaining urine. ~ 700 cc was collected. -Pain meds as per Dr. Espinal Dilaudid 2mg IV q4 prn pain Oxycodone 1 tab po q6 prn pain Continue to monitor urine output Monitor for bowel movements. Hx CAD s/p 3 stents -ASA and plavix on hold bc of hematuria -Lipid panel WNL -Crestor increased to 10 mg po hs ( pharmacy equivalent to patient's atorvastatin home dose) -Norvasc 5mg po daily discontinued. Patient's home medication Zestril confirmed. -f/u AM labs Hx HTN -Norvasc 5mg po daily discontinued. Patient's home medication Zestril confirmed. -May be secondarily elevated due to pain. -Continue to monitor BP Hx IDDM -Accucheck -ISS increased to Medium dose -Lantus 60U HS -D5NS @ 100cc/hr -Neurontin 300mg po daily -HgbA1c 8.7 Hx elevated PSA -PSA 4.92 (elevated) however likely elevated as a result of biopsy procedures over past few weeks. PPX -SCDs -Pepcid 20mg po bid -VTE ppx on hold -Moderate consistent carb diet -Zofran 4mg IV q6 prn nausea/vomiting <Sandra Jones V - Last Filed: 04/30/17 05:19> Objective - Vital Signs/Intake and Output Vital Signs (last 24 hours): Temp Pulse Resp BP Pulse Ox 100.0 F H 81 20 126/76 96 04/29/17 23:10 04/29/17 23:10 04/29/17 23:10 04/29/17 23:10 04/29/17 23:10 Intake and Output: 04/29/17 04/30/17 18:59 06:59 Intake Total 1200 1300 Output Total 1300 550 Balance -100 750 - Medications Medications: Current Medications Famotidine (Pepcid) 20 mg PO BID [facility] Last Admin: 04/29/17 17:55 Dose: 20 mg Gabapentin (Neurontin) 300 mg PO DAILY [facility] Last Admin: 04/29/17 10:09 Dose: 300 mg Hydromorphone HCl (Dilaudid) 2 mg IVP Q4H PRN PRN Reason: Pain, moderate (4-7) Last Admin: 04/30/17 01:21 Dose: 2 mg Dextrose/Sodium Chloride (Dextrose 5%/0.45% Ns 1000 Ml) 1,000 mls @ 100 mls/hr IV .Q10H [facility] Last Admin: 04/30/17 02:45 Dose: 100 mls/hr Insulin Aspart (Novolog) 0 unit SC ACHS [facility] PRN Reason: Protocol Last Admin: 04/29/17 22:00 Dose: Not Given Insulin Glargine (Lantus) 60 unit SC HS PRN PRN Reason: Serum glucose Lisinopril (Zestril) 5 mg PO DAILY [facility] Last Admin: 04/29/17 10:09 Dose: 5 mg Ondansetron HCl (Zofran Inj) 4 mg IVP Q6H PRN PRN Reason: Nausea/Vomiting Oxycodone/Acetaminophen (Percocet 5/325 Mg Tab) 1 tab PO Q6H PRN PRN Reason: Bladder Spasm Stop: 04/30/17 17:22 Last Admin: 04/28/17 12:51 Dose: 1 tab Rosuvastatin Calcium (Crestor) 10 mg PO HS [facility] Last Admin: 04/29/17 21:59 Dose: 10 mg - Labs Labs: 04/29/17 05:21 04/29/17 05:21 Attending/Attestation - Attestation I have personally seen and examined this patient.: Yes I have fully participated in the care of the patient.: Yes I have reviewed all pertinent clinical information, including history, physical exam and plan: Yes Notes (Text): This is a late computer entry for 04/29/17. Patient seen, examined, and case discussed with day-time resident. Patient seen at bedside, appears comfortable, sleeping, with at bedside at lunch time. Patient noted urinary retention earlier today but feels better at this time. Bladder tumor and hematuria management per urology. Patient restarted on his home medication: Lisinopril, Discontinued Norvasc. Patient appears medically stable. Will discuss with urology when can patient restart Aspirin/Plavix post procedure Assessment/Plan 1)Bladder tumor and hematuria -POD#1 retrograde cystoscopy with stent insertion and transurethral resection of bladder -Abdominal x-ray- normal filling of collecting systems with unremarkable ureters. Satisfactory postoperative status as stated in report. Refer to complete report. -Patient had complaints of some discharge however Dr. Espinal made aware and acknowledged that it is a temporary presentation associated post-op. -Santos removed yesterday however re-inserted because patient was retaining urine. ~ 700 cc was collected. -Pain meds as per Dr. Espinal Dilaudid 2mg IV q4 prn pain Oxycodone 1 tab po q6 prn pain Continue to monitor urine output Monitor for bowel movements. -PSA 4.92 (elevated) 2)Hx CAD s/p 3 stents -ASA and plavix on hold bc of hematuria-->per urology to determine when to restart Aspirin and Plavix -Lipid panel WNL -Crestor increased to 10 mg po hs ( pharmacy equivalent to patient's atorvastatin home dose) -Norvasc 5mg po daily discontinued. Patient's home medication Zestril confirmed. -f/u AM labs 3) Hx HTN -Norvasc 5mg po daily discontinued. Patient's home medication Zestril confirmed. -May be secondarily elevated due to pain. -Continue to monitor BP 4) Hx IDDM -Accuchecks QAC and HS -ISS increased to Medium dose -Lantus 60U HS -D5NS @ 100cc/hr -Neurontin 300mg po daily -HgbA1c 8.7 5) PPX -SCDs -Pepcid 20mg po bid -VTE ppx on hold -Moderate consistent carb diet -Zofran 4mg IV q6 prn nausea/vomiting
[2017-04-29] MEDS: (Novolog) Insulin Aspart, Recombinant 100 u/ml 10 ml vial SC SCH ×4 (08:14→22:00)
--- NOTE | 2017-04-29 22:02 | PCM.URO ---
Urology Progress Note - General General: No Complaints, Tolerating Diet - Subjective Abdominal Pain: No (resolved. prev sp discomfort) Flank Pain: No Nausea: No Vomiting: No Voiding Well: No (catheter in place) Hematuria: No Chest Pain: No Fever & Chills: No - Objective Lab Results Last 24 Hours: Laboratory Results - last 24 hr 04/29/17 04/29/17 04/29/17 05:21 05:21 06:04 WBC 8.3 RBC 4.64 Hgb 11.1 L Hct 34.7 L MCV 74.8 L MCH 23.9 L MCHC 31.9 L RDW 17.6 H Plt Count 274 MPV 9.2 Neut % (Auto) 68.8 Lymph % (Auto) 19.5 L [place] % (Auto) 10.5 H Eos % (Auto) 0.9 Baso % (Auto) 0.3 Neut # 5.7 Lymph # 1.6 [place] # 0.9 H Eos # 0.1 Baso # 0.0 Sodium 135 Potassium 4.0 Chloride 99 Carbon Dioxide 26 Anion Gap 14 BUN 13 Creatinine 0.9 Est GFR ( Amer) > 60 Est GFR (Non-Af Amer) > 60 POC Glucose (mg/dL) 259 H Random Glucose 244 H Calcium 8.7 Phosphorus 2.9 Magnesium 1.7 Total Bilirubin 0.6 AST 18 ALT 18 L Alkaline Phosphatase 66 Total Protein 6.8 Albumin 3.6 Globulin 3.2 Albumin/Globulin Ratio 1.1 04/29/17 04/29/17 04/29/17 11:09 16:34 21:21 WBC RBC Hgb Hct MCV MCH MCHC RDW Plt Count MPV Neut % (Auto) Lymph % (Auto) [place] % (Auto) Eos % (Auto) Baso % (Auto) Neut # Lymph # [place] # Eos # Baso # Sodium Potassium Chloride Carbon Dioxide Anion Gap BUN Creatinine Est GFR ( Amer) Est GFR (Non-Af Amer) POC Glucose (mg/dL) 284 H 255 H 250 H Random Glucose Calcium Phosphorus Magnesium Total Bilirubin AST ALT Alkaline Phosphatase Total Protein Albumin Globulin Albumin/Globulin Ratio Intake & Output: Intake & Output 04/29/17 04/29/17 04/30/17 06:59 18:59 06:59 Intake Total 1720 1200 Output Total 2300 1300 Balance -580 -100 Weight 175 lb Intake: IV 800 Intake, IV Amount 1600 Right Forearm 1600 Oral 120 400 Output: Urine 2300 1300 2-way Urethral 1800 1300 Urine, Voided 500 Vital Signs: Vital Signs - 24 hr 04/28/17 04/29/17 04/29/17 23:10 07:20 09:55 Temperature 98.7 F 99 F Pulse Rate 103 H 87 81 Respiratory 20 20 Rate Blood Pressure 150/85 137/82 121/72 O2 Sat by Pulse 95 97 Oximetry 04/29/17 04/29/17 04/29/17 12:59 16:02 18:46 Temperature 98.8 F 98.4 F Pulse Rate 77 70 81 Respiratory 20 20 Rate Blood Pressure 126/74 132/72 143/73 O2 Sat by Pulse 94 L 92 L Oximetry - Physical Exam Abdominal Exam: Soft, Non-Tender, Non-Distended Back: No CVA Tenderness Genitalia: Without Inflammation Urinary Catheter Draining Well: Yes Urine Color: Clear, Yellow - Plan Catheter Care: Yes Intake & Output: Yes Additional Information: Imp: stable urologically. hx of retention. hx of bladder tumor. Plan: catheter in place. ambulatory. discussed w pt and family - Date & Time of Note Date: 04/29/17 Time: 12:10
[2017-04-30] MEDS: Dextrose 5%/0.45% NS 1,000 ML IV SCH (02:45)
[2017-04-30 06:11] LABS: BASO % 0.6 % (0.0-2.0); EOS # 0.3 K/uL (0.0-0.7); EOS % 4.2 % (0.0-4.0); HEMATOCRIT 31.7 % (35.0-51.0); LYMPH % 27.4 % (20.0-40.0); MEAN CELL VOLUME 75.2 fL (80.0-94.0); MEAN CORPUSCULAR HEMOGLOBIN 24.1 pg (27.0-31.0); MEAN PLATELET VOLUME 8.8 fL (7.2-11.7); MONO # 0.8 K/uL (0.0-0.8); MONO % 11.5 % (0.0-10.0); RED CELL DISTRIBUTION WIDTH 17.6 % (11.5-14.5); WHITE BLOOD COUNT 7.2 K/uL (4.8-10.8)
[2017-04-30 06:18] LABS: CHLORIDE 98 mmol/L (98-107)
[2017-04-30 06:19] LABS: POTASSIUM 4.3 mmol/L (3.6-5.2); SODIUM 133 mmol/L (132-148)
[2017-04-30 06:21] LABS: ALB/GLOB RATIO 1.1 (1.0-2.1); ALKALINE PHOSPHATASE 60 U/L (38-126); AST/SGOT 16 U/L (17-59); BILIRUBIN,TOTAL 0.6 mg/dL (0.2-1.3); BLOOD UREA NITROGEN 15 mg/dL (9-20); CARBON DIOXIDE 27 mmol/L (22-30); GFR AFRICAN-AMERICAN > 60; TOTAL PROTEIN 6.3 g/dL (6.3-8.3)
[2017-04-30 06:22] LABS: ALT/SGPT 14 U/L (21-72); CALCIUM 8.3 mg/dl (8.6-10.4); GLUCOSE,RANDOM 267 mg/dL (75-110); MAGNESIUM 1.7 mg/dL (1.6-2.3); PHOSPHOROUS 2.9 mg/dL (2.5-4.5)
[2017-04-30] MEDS: (Novolog) Insulin Aspart, Recombinant 100 u/ml 10 ml vial SC SCH ×4 (08:38→22:00)
--- NOTE | 2017-04-30 08:51 | PCM.URO ---
Urology Progress Note - Objective Lab Results Last 24 Hours: Laboratory Results - last 24 hr 04/29/17 04/29/17 04/29/17 11:09 16:34 21:21 WBC RBC Hgb Hct MCV MCH MCHC RDW Plt Count MPV Neut % (Auto) Lymph % (Auto) [place] % (Auto) Eos % (Auto) Baso % (Auto) Neut # Lymph # [place] # Eos # Baso # Sodium Potassium Chloride Carbon Dioxide Anion Gap BUN Creatinine Est GFR ( Amer) Est GFR (Non-Af Amer) POC Glucose (mg/dL) 284 H 255 H 250 H Random Glucose Calcium Phosphorus Magnesium Total Bilirubin AST ALT Alkaline Phosphatase Total Protein Albumin Globulin Albumin/Globulin Ratio 04/30/17 04/30/17 04/30/17 06:02 06:02 06:06 WBC 7.2 RBC 4.22 L Hgb 10.2 L Hct 31.7 L MCV 75.2 L MCH 24.1 L MCHC 32.0 L RDW 17.6 H Plt Count 260 MPV 8.8 Neut % (Auto) 56.3 Lymph % (Auto) 27.4 [place] % (Auto) 11.5 H Eos % (Auto) 4.2 H Baso % (Auto) 0.6 Neut # 4.1 Lymph # 2.0 [place] # 0.8 Eos # 0.3 Baso # 0.0 Sodium 133 Potassium 4.3 Chloride 98 Carbon Dioxide 27 Anion Gap 13 BUN 15 Creatinine 1.0 Est GFR ( Amer) > 60 Est GFR (Non-Af Amer) > 60 POC Glucose (mg/dL) 296 H Random Glucose 267 H Calcium 8.3 L Phosphorus 2.9 Magnesium 1.7 Total Bilirubin 0.6 AST 16 L ALT 14 L D Alkaline Phosphatase 60 Total Protein 6.3 Albumin 3.3 L Globulin 3.0 Albumin/Globulin Ratio 1.1 Intake & Output: Intake & Output 04/29/17 04/30/17 04/30/17 18:59 06:59 18:59 Intake Total 1200 2220 Output Total 1300 1250 Balance -100 970 Intake: IV 800 Intake, IV Amount 1600 Right Forearm 1600 Oral 400 620 Output: Urine 1300 1250 2-way Urethral 1300 550 Urethral ([place]) 700 Other: # Bowel Movements 0 Vital Signs: Vital Signs - 24 hr 04/29/17 04/29/17 04/29/17 09:55 12:59 16:02 Temperature 98.8 F 98.4 F Pulse Rate 81 77 70 Respiratory 20 20 Rate Blood Pressure 121/72 126/74 132/72 O2 Sat by Pulse 94 L 92 L Oximetry 04/29/17 04/29/17 04/30/17 18:46 23:10 00:05 Temperature 100.0 F H 99.9 F H Pulse Rate 81 81 Respiratory 20 20 Rate Blood Pressure 143/73 126/76 O2 Sat by Pulse 96 96 Oximetry 04/30/17 07:15 Temperature 99.8 F H Pulse Rate 80 Respiratory 18 Rate Blood Pressure 134/82 O2 Sat by Pulse 95 Oximetry
--- NOTE | 2017-04-30 12:41 | CP.PCM.PN ---
<Mirza Wellington - Last Filed: 04/30/17 16:11> Subjective - Date & Time of Evaluation Date of Evaluation: 04/30/17 Time of Evaluation: 06:13 - Subjective Subjective: PGY 1 Medicine Note- Dr. Jones's service Pt seen and examined in no acute distress. Patient states that pain is improved. Blount was removed around 11am this morning. Patient expressed that he does not currently follow with a Director Supply Chain. He has one in mind but has not sought this Director Supply Chain out personally. His prior bridal stylist sales consultant who he was following back in 2000 moved to [place]. Patient expressed that he stopped taking his aspirin and plavix since the hematuria began on prior admission. Patient denied subjective fevers or chills, headaches, chest pain, palpitations , nausea, vomiting or paresthesias at this time. Objective - Vital Signs/Intake and Output Vital Signs (last 24 hours): Temp Pulse Resp BP Pulse Ox 99.8 F H 80 18 134/82 95 04/30/17 07:15 04/30/17 07:15 04/30/17 07:15 04/30/17 07:15 04/30/17 07:15 Intake and Output: 04/30/17 04/30/17 06:59 18:59 Intake Total 2220 Output Total 1250 Balance 970 - Medications Medications: Current Medications Famotidine (Pepcid) 20 mg PO BID [facility] Last Admin: 04/30/17 10:46 Dose: 20 mg Gabapentin (Neurontin) 300 mg PO DAILY [facility] Last Admin: 04/30/17 10:46 Dose: 300 mg Hydromorphone HCl (Dilaudid) 2 mg IVP Q4H PRN PRN Reason: Pain, moderate (4-7) Last Admin: 04/30/17 05:31 Dose: 2 mg Dextrose/Sodium Chloride (Dextrose 5%/0.45% Ns 1000 Ml) 1,000 mls @ 100 mls/hr IV .Q10H [facility] Last Admin: 04/30/17 02:45 Dose: 100 mls/hr Insulin Aspart (Novolog) 0 unit SC ACHS [facility] PRN Reason: Protocol Last Admin: 04/30/17 08:38 Dose: 4 unit Insulin Glargine (Lantus) 30 unit SC HS [facility] Lisinopril (Zestril) 5 mg PO DAILY [facility] Last Admin: 04/30/17 10:46 Dose: 5 mg Ondansetron HCl (Zofran Inj) 4 mg IVP Q6H PRN PRN Reason: Nausea/Vomiting Oxycodone/Acetaminophen (Percocet 5/325 Mg Tab) 1 tab PO Q6H PRN PRN Reason: Bladder Spasm Stop: 04/30/17 17:22 Last Admin: 04/28/17 12:51 Dose: 1 tab Rosuvastatin Calcium (Crestor) 10 mg PO HS [facility] Last Admin: 04/29/17 21:59 Dose: 10 mg - Labs Labs: 04/30/17 06:02 04/30/17 06:02 - Constitutional Appears: Non-toxic, No Acute Distress - Head Exam Head Exam: ATRAUMATIC, NORMAL INSPECTION, NORMOCEPHALIC - Eye Exam Eye Exam: EOMI, Normal appearance, PERRL Pupil Exam: NORMAL ACCOMODATION - ENT Exam ENT Exam: Mucous Membranes Moist - Neck Exam Neck Exam: Full ROM - Respiratory Exam Respiratory Exam: NORMAL BREATHING PATTERN - Cardiovascular Exam Cardiovascular Exam: +S1, +S2 - GI/Abdominal Exam GI & Abdominal Exam: Soft, Normal Bowel Sounds - Exam Additional comments: suprapubic tenderness - Extremities Exam Extremities Exam: Full ROM - Back Exam Back Exam: Full ROM - Neurological Exam Neurological Exam: Alert, Awake, Oriented x3 - Psychiatric Exam Psychiatric exam: Normal Affect, Normal Mood - Skin Skin Exam: Dry, Normal Color, Warm Assessment and Plan - Assessment and Plan (Free Text) Assessment: Bladder tumor and hematuria -s/p retrograde cystoscopy with stent insertion and transurethral resection of bladder -Abdominal x-ray- normal filling of collecting systems with unremarkable ureters. Satisfactory postoperative status as stated in report. Refer to complete report. -Patient had complaints of some discharge however Dr. Espinal made aware and acknowledged that it is a temporary presentation associated post-op. -Blount removed . Some pain noted after urinating and thus Pyridium administered once. Will monitor -Pain meds as per Dr. Espinal Dilaudid 2mg IV q4 prn pain Oxycodone 1 tab po q6 prn pain Pain regiment per Urology Continue to monitor urine output Monitor for bowel movements. Hx CAD s/p 3 stents -ASA and plavix restarted. Patient counseled on continued use as well as following up with a bridal stylist sales consultant -Lipid panel WNL -Crestor 10 mg po hs ( pharmacy equivalent to patient's atorvastatin home dose) Zestril 5 mg PO daily -f/u AM labs Hx HTN -Zestril 5 mg PO daily -May be secondarily elevated due to pain. -Continue to monitor BP Hx IDDM -Accucheck -ISS increased to Medium dose -Lantus 30U HS. Patient had not been getting 60 units as it was PRN dosing. Will start with half the dose scheduled and titrate upwards if needed. -Neurontin 300mg po daily -HgbA1c 8.7 Hx elevated PSA -PSA 4.92 (elevated) however likely elevated as a result of biopsy procedures over past few weeks. PPX -SCDs -Pepcid 20mg po bid -VTE ppx on hold -Moderate consistent carb diet -Zofran 4mg IV q6 prn nausea/vomiting <Sandra Jones V - Last Filed: 05/05/17 19:18> Objective - Vital Signs/Intake and Output Vital Signs (last 24 hours): Temp Pulse Resp BP Pulse Ox 98.8 F 71 20 130/78 96 05/01/17 15:35 05/01/17 15:35 05/01/17 15:35 05/01/17 15:35 05/01/17 15:35 - Labs Labs: 05/01/17 07:22 05/01/17 07:22 Attending/Attestation - Attestation I have personally seen and examined this patient.: Yes I have fully participated in the care of the patient.: Yes I have reviewed all pertinent clinical information, including history, physical exam and plan: Yes Notes (Text): This is a late computer entry for 04/30/17. Patient seen, examined, and case discussed with day-time resident. Patient seen at bedside, appears comfortable, sleeping, with at bedside at lunch time. Post-operative management for bladder tumor and hematuria management per urology. Discussed with patient extensively regarding his cardiac history. Patient has not seen a bridal stylist sales consultant in quite some time. He reports he was given follow-up with bridal stylist sales consultant at [place] but he did not want to follow-up with him. He reports he is thinking about getting new bridal stylist sales consultant local to him pending his insurance. Strongly counselled patient to follow-up with a bridal stylist sales consultant given history of CAD and stents. Discussed with urology, patient restarted on his Aspirin, Plavix; and to continue statin and demarco-inhibitor. Assessment/Plan 1)Bladder tumor and hematuria - management per urology; discussed with Dr. Alba Espinal; patient re-started on his Aspirin and Plavix given cardiac history -POD retrograde cystoscopy with stent insertion and transurethral resection of bladder -Abdominal x-ray- normal filling of collecting systems with unremarkable ureters. Satisfactory postoperative status as stated in report. Refer to complete report. -Patient had complaints of some discharge however Dr. Espinal made aware and acknowledged that it is a temporary presentation associated post-op. -Pain meds as per Dr. Espinal Dilaudid 2mg IV q4 prn pain Oxycodone 1 tab po q6 prn pain Continue to monitor urine output Monitor for bowel movements. -PSA 4.92 (elevated) 2)Hx CAD s/p 3 stents -ASA and plavix restarted -Lipid panel WNL -Crestor 10mg POqHS -Lisinopril 5mg PO daily -I had a very detailed discussion discussed with patient and patient's at bedside to follow-up with bridal stylist sales consultant as outpatient 3) Hx HTN -Lisinopril 5mg PO daily -May be secondarily elevated due to pain. -Continue to monitor BP 4) Hx IDDM -Accuchecks QAC and HS -ISS increased to Medium dose -Lantus 30U HS -Neurontin 300mg po daily -HgbA1c 8.7 5) PPX -SCDs -Pepcid 20mg po bid -Aspirin and Plavix restarted following discussion with urology -Moderate consistent carb diet -Zofran 4mg IV q6 prn nausea/vomiting
--- NOTE | 2017-04-30 15:52 | PN ---
DATE: 04/27/2017 TIME: About 11 p.m. See the operative note for the history and physical. The patient was doing well. I had been speakin g to the patient. He says he is having a lot of pain and discomfort. He asked me to come back to se long him. I am just leaving my office now. I had been speaking to the nurse all night. In fact, when I got here, the nurse is at the bedside irrigating the catheter, irrigating gently and easily. I did the same thing. The patient is having some hematuria, but the bladder is irrigating. The catheter is irrigating well . See, the plans are basically to follow the patient, pain medicine, but there is no evidence of acute abdomen, no evidence of perforations. The catheter looks good, draining properly, and the irrigation is working well. Cong Espinal MD cc: [id number] TT: 04/30/2017 15:51:26 Confirmation # [id number] Dictation # [id number] dn
--- NOTE | 2017-04-30 15:57 | PN ---
DATE: 04/28/2017 See the admission history and physical and operative report, today's 04/28 progress note. The patien t . Feels much better than last night. Catheter draining well. PHYSICAL EXAMINATION: The abdomen is soft, no changes. DIAGNOSES: Prostate cancer, urinary voiding dysfunction, and irritative and obstructive complaints. PLAN: Will be for a voiding trial and then further plans will follow. clinically and I explai fredy this all to the patient in great detail. Cong Espinal MD cc: [id number] TT: 04/30/2017 15:56:26 Confirmation # [id number] Dictation # [id number] dn
--- NOTE | 2017-04-30 16:00 | PN ---
DATE: 04/30/2017 See my previously dictated notes from 04/27, 04/28. Also, the patient was seen yesterday by Dr. Glenna Espinal. I had given a voiding trial, but he still catheter back in. At this point, it is now 04/30/2017. See the plans below. He wants a voiding trial. He wants to se e if he can get home soon. PAST MEDICAL AND SURGICAL HISTORY: Otherwise, no changes. PHYSICAL EXAMINATION: GENERAL: Well-nourished male, in no apparent distress. VITAL SIGNS: Within normal limits. ABDOMEN: Soft. Catheter in place, clear yellow urine. PLAN: I discussed options. I just want to mention I gave the patient his pathology report from [facility]. The patient is already on Flomax. We are going to give him a voiding trial. We explained this to the patient. Risks, benefits, etc., have been provided at length to him. Cong Espinal MD cc: [id number] TT: 04/30/2017 16:00:35 Confirmation # [id number] Dictation # [id number] vazquez
--- NOTE | 2017-04-30 16:42 | HP ---
REASON FOR ADMISSION: Bladder cancer treatment. HISTORY OF PRESENT ILLNESS: The patient is a very pleasant gentleman. See previously dictated notes -- a note from [facility], office notes, chart notes. He was in the [place] [facility]. He had gross hematuria on Plavix, retention. First, we had to wash out all the blood. Could not even see well. His prostate felt hard. PSA was high. We subsequently did prostate biopsies. There was no cancer. H is prostate actually feels remarkably softer now that he has been without a Blount catheter without re tention. a rectal exam. These are all dictated from separate notes. Anyway, a biopsy shows that I have lamina propria in the specimen, but there is no cancer in the lamina propria. Now here today for a full resection. This is actually his third procedure. Initially presented with gross hematuria. Just had to wash out the clots. Then we did a little biop sy. I did not want to do a biopsy on Plavix. Then we did a little biopsy, but now he is here for a f ull resection. Off the Plavix and I am planning to put stents in. See below plan. PAST MEDICAL AND SURGICAL HISTORY: Otherwise, no change. The patient has a history of an AR, histor y of cardiac disease, coronary artery disease, hypertension. 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 He is looking for a new doctor. He was then sent to [place]. Either way, I need to get him to another doctor. He is looking for other doctors. PAST MEDICAL AND SURGICAL HISTORY: Otherwise, as listed above. REVIEW OF SYSTEMS: As above. No weight loss, chest pains, shortness of breath. No constitutional co mplaints. SOCIAL HISTORY: He comes with his . His is very supportive in his care. PHYSICAL EXAMINATION: GENERAL: Well-nourished male, in no apparent distress. VITAL SIGNS: Within normal limits. . LUNGS: Clear. ABDOMEN: Overall soft, nontender. GENITOURINARY: Normal no testicular masses. RECTAL Initially with a really firm, hard prostate. Of late, it has been about a 30 gram prostate t hat is relatively soft. LABORATORIES: See chart. DIAGNOSES: Gross hematuria, bladder cancer, not prostate cancer. We have done biopsies of the [facility] er, prostate, etc. We found transitional cell, low grade in appearance. It is right at the orifice. PLAN: Today, the plan is for a cysto, double-J stent insertion and then a full resection and also we are planning for antibiotic prophylaxis. So the plan is as follows: 1. Antibiotic prophylaxis. 2. Cysto, retrograde and stent insertion and also TURBT with resectoscope and then further plans to follow. Cong Espinal MD cc: [id number] TT: 04/30/2017 16:41:12 ln
[2017-04-30] MEDS ORDERED: (Lantus) Insulin Glargine, Recombinant SC SCH (22:00)
--- NOTE | 2017-04-30 22:56 | OP ---
PROCEDURE DATE: 04/30/2017 PREOPERATIVE DIAGNOSES: Gross hematuria, bladder cancer at the ureteral orifice, hematuria, voiding dysfunction, urinary retention, elevated PSA, and transitional cell carcinoma of the bladder. POSTOPERATIVE DIAGNOSES: Gross hematuria, bladder cancer at the ureteral orifice, hematuria, voiding dysfunction, urinary retention, elevated PSA, and transitional cell carcinoma of the bladder. PROCEDURES: Cystoscopy, bilateral retrograde pyelograms, bilateral double-J stent insertion with sam pacheco, and then a TURBT, resection of complete masses. COMPLICATIONS: There were no complications. Insertion of Blount catheter. BLOOD LOSS: Less than 25 mL. FINDINGS: 1. Normal anterior urethra, no . There are no strictures. 2. The veru is visually occluded, about 3 cm in length. 3. There is a tumor, a little fragment, over the right ureteral orifice, and on the left side there is a good amount tumor right adjacent to the left ureteral orifice. Multiple pictures were taken. 4. There was minimal blood loss. 5. At the termination of the procedure, there is no visible tumor. I resected the entire amount of tumor, adequately, deeply. INDICATIONS: See the history and physical. This is a very pleasant gentleman, who initially present ed with gross hematuria. At that time, he was in retention. He then asked for a voiding trial. We gave it to him. He then went back into retention immediately. He has been on Plavix, although latel y he stopped it, and there is not any interim blood. We then did a cystoscope. All this is dictated in separate notes. Bladder cancer. What looked like bladder cancer. I could not be sure, there was so much blood. I w ashed out all the blood, fulgurated gently because I did not want to But then what we did was we found him to have a definite bladder cancer. We subsequently did a biops y, not when he is on Plavix, because we waited for him to stop the Plavix. He has been to a ca rdiologist. There is history of stents and cardiac stroke, coronary artery disease. See history and physical for the details, but now his doctor went to [place] and he is looking for another doctor. He was not happy with the next doctor that he went to. He, himself, stopped the medications, again, not at my recommendations at all. In fact, I really recommend that he be evaluated by training and development rep. But after discussing all the options, he had been off the Plavix, finally we did a deep biopsy of mus wanda in the specimen, but there is no cancer in the muscle. Now, he is here for full TURBT and I also want to mention that we are putting stents in, especially g iven the location. PAST MEDICAL AND SURGICAL HISTORY: As listed. He has a history of the [place]. History of a stent. SOCIAL HISTORY: He is here with his . He comes to the office with her. Very pleasant gentleman about all the matter. PHYSICAL EXAMINATION: GENERAL: Well-nourished male, in no apparent distress. VITAL SIGNS: Noted within normal limits. LUNGS: Clear. HEART: Normal. ABDOMEN: Overall soft, nontender. No real flank mass appreciated. No CVA tenderness. GENITALIA: Normal male phallus without discharge. No testicular masses. RECTAL: Actually, a fairly firm prostate, about 20-30 grams. DIAGNOSES: Gross hematuria, firm prostate, elevated PSA. We had discussed options with the patient, and he is here now for the above-listed procedure. PROCEDURE: Cystoscopy, bilateral retrograde pyelograms, see the body of the report, and bilateral do uble-J stent insertions and a full TURBT. I do want to mention the following: SPECIMEN SENT DOWN: Bladder cancer specimen. I just want to mention very briefly, also that the patient previously had a biopsy of his prostate an d there was no cancer seen on that biopsy. DESCRIPTION OF PROCEDURE: After obtaining informed consent, the patient was placed on the table. Ro utine monitors placed. Timeouts were called to confirm the patient and positioning. We gave antibio tic prophylaxis. Now we introduced the cystoscope via the urethra. There were no strictures. The veru was visually o cclusive about 3 cm. We now identified the bladder cancer. Where I did a biopsy before, next to the right ureteral orific e, there is still a little fluffy tissue. I biopsied this again and cauterized at its base. Prior to doing any of this, though, I put in double J stents. I did retrograde pyelograms with cone- tips, put a wire, later I will convert those wires to double-J stents with dangles. On the left side of the trigone, just on the lateral side of the orifice, I identified the tumor. On ce the contrast had been given and we put the wires up, we now converted over to the continuous flow resectoscope and resected all the tumor. We had a little difficulty getting all of the equipment working perfectly, but finally we got continu ous flow [facility] set up. We initially started I just want this all for documentation, timing, etc. Once we did this, the entire procedure was done with the aid of the camera. We resected. There is no visible tumor. I achieved hemostasis. At this point, we converted the wires to double J stents. Confirmed the positioning by x-ray criteri a. I inserted a Blount catheter via the urethra. We leave the dangles outside. Secure the catheter in place. The patient tolerated the procedure well without complications. So, again I just want to type in the name of the procedure: Cystoscopy, bilateral retrograde pyelograms, and insertion of double-J stent s, and a full TURBT. At the termination, there is no visible tumor. The patient tolerated procedure without complication. See History and Physical for further details. Cong Espinal MD cc: [id number] TT: 04/30/2017 22:55:16 tn
[2017-05-01 00:55] VITALS: O2SAT 96
[2017-05-01 07:38] LABS: BASO % 0.5 % (0.0-2.0); EOS # 0.1 K/uL (0.0-0.7); EOS % 2.2 % (0.0-4.0); HEMATOCRIT 32.5 % (35.0-51.0); LYMPH # 1.3 K/uL (1.0-4.3); LYMPH % 20.2 % (20.0-40.0); MEAN CELL VOLUME 73.6 fL (80.0-94.0); MEAN CORPUSCULAR HEMOGLOBIN 24.2 pg (27.0-31.0); MEAN CORPUSCULAR HGB CONC 32.9 g/dL (33.0-37.0); MEAN PLATELET VOLUME 8.8 fL (7.2-11.7); MONO # 0.8 K/uL (0.0-0.8); MONO % 12.7 % (0.0-10.0); NRBC % 0.1 % (0.0-2.0); RED CELL DISTRIBUTION WIDTH 17.1 % (11.5-14.5); WHITE BLOOD COUNT 6.5 K/uL (4.8-10.8)
--- NOTE | 2017-05-01 07:41 | CP.PCM.PN ---
Subjective - Date & Time of Evaluation Date of Evaluation: 05/01/17 Time of Evaluation: 07:45 - Subjective Subjective: PGY 1 Medicine Note- Dr. Steward's service Pt seen and examined in no acute distress. Patient states that pain is improved. He complains of dysuria with urination on one instance overnight. The importance of following up with a Belly Dump Driver upon discharge was reiterated to patient by medical team. Patient denied subjective fevers or chills, headaches, chest pain, palpitations, nausea, vomiting or paresthesias at this time. Objective - Vital Signs/Intake and Output Vital Signs (last 24 hours): Temp Pulse Resp BP Pulse Ox 99.7 F H 85 20 114/60 96 04/30/17 23:15 04/30/17 23:15 04/30/17 23:15 04/30/17 23:15 04/30/17 23:15 Intake and Output: 05/01/17 05/01/17 06:59 18:59 Output Total 400 Balance -400 - Medications Medications: Current Medications Aspirin (Ecotrin) 81 mg PO DAILY [facility] Clopidogrel Bisulfate (Plavix) 75 mg PO DAILY [facility] Docusate Sodium (Colace) 100 mg PO DAILY [facility] Famotidine (Pepcid) 20 mg PO BID [facility] Last Admin: 04/30/17 17:32 Dose: 20 mg Gabapentin (Neurontin) 300 mg PO DAILY [facility] Last Admin: 04/30/17 10:46 Dose: 300 mg Hydromorphone HCl (Dilaudid) 2 mg IVP Q4H PRN PRN Reason: Pain, moderate (4-7) Last Admin: 04/30/17 05:31 Dose: 2 mg Insulin Aspart (Novolog) 0 unit SC [facility] PRN Reason: Protocol Last Admin: 04/30/17 22:00 Dose: Not Given Insulin Glargine (Lantus) 30 unit SC [facility] Last Admin: 04/30/17 21:27 Dose: 30 u Lisinopril (Zestril) 5 mg PO DAILY [facility] Last Admin: 04/30/17 10:46 Dose: 5 mg Ondansetron HCl (Zofran Inj) 4 mg IVP Q6H PRN PRN Reason: Nausea/Vomiting Rosuvastatin Calcium (Crestor) 10 mg PO HS [facility] Last Admin: 04/30/17 21:27 Dose: 10 mg - Labs Labs: 04/30/17 06:02 04/30/17 06:02 - Constitutional Appears: Non-toxic, No Acute Distress - Head Exam Head Exam: ATRAUMATIC, NORMAL INSPECTION, NORMOCEPHALIC - Eye Exam Eye Exam: EOMI, Normal appearance, PERRL Pupil Exam: NORMAL ACCOMODATION, PERRL - ENT Exam ENT Exam: Mucous Membranes Moist - Neck Exam Neck Exam: Full ROM - Respiratory Exam Respiratory Exam: Clear to Ausculation Bilateral, NORMAL BREATHING PATTERN. absent: Wheezes - Cardiovascular Exam Cardiovascular Exam: REGULAR RHYTHM, +S1, +S2 - GI/Abdominal Exam GI & Abdominal Exam: Soft, Normal Bowel Sounds - Extremities Exam Extremities Exam: Full ROM, Normal Capillary Refill - Back Exam Back Exam: Full ROM, NORMAL INSPECTION - Neurological Exam Neurological Exam: Alert, Awake, CN II-XII Intact, Oriented x3 - Psychiatric Exam Psychiatric exam: Normal Affect, Normal Mood - Skin Skin Exam: Dry, Normal Color, Warm Assessment and Plan - Assessment and Plan (Free Text) Assessment: Bladder tumor and hematuria -s/p retrograde cystoscopy with stent insertion and transurethral resection of bladder -Abdominal x-ray- normal filling of collecting systems with unremarkable ureters. Satisfactory postoperative status as stated in report. Refer to complete report. -Patient had complaints of some discharge however Dr. Espinal made aware and acknowledged that it is a temporary presentation associated post-op. -Blount removed . Some pain noted after urinating and thus Pyridium administered once. Will monitor -Pain meds as per Dr. Espinal Dilaudid 2mg IV q4 prn pain Oxycodone 1 tab po q6 prn pain Pain regiment and urological management per Urology Continue to monitor urine output Monitor for bowel movements. Positive UA F/U UC Patient instructed to follow up with PMD Dr. Wise regarding results of urine culture to follow up on sensitivities Keflex 500 mg BID. Antibiotic may change pending sensitivities. Hx CAD s/p 3 stents -ASA and plavix restarted. Patient should continue these medications. Patient counseled on importance of following up with a basket operator. -Lipid panel WNL -Crestor 10 mg po hs ( pharmacy equivalent to patient's atorvastatin home dose) Zestril 5 mg PO daily Hx HTN -Zestril 5 mg PO daily -May be secondarily elevated due to pain. -Continue to monitor BP Hx IDDM -Accucheck -ISS increased to Medium dose -Lantus 30U HS. C -Neurontin 300mg po daily -HgbA1c 8.7 Hx elevated PSA -PSA 4.92 (elevated) however likely elevated as a result of biopsy procedures over past few weeks. PPX -SCDs -Pepcid 20mg po bid -VTE ppx on hold -Moderate consistent carb diet -Zofran 4mg IV q6 prn nausea/vomiting Patient is stable from medicine standpoint pending Urology discharge with understanding of the following: Patient should continue ASA 81 mg daily and Plavix 75 mg daily. Patient instructed to follow up with a Belly Dump Driver once discharged. present bedside on 04/30 as well with acknowledgement. Patient to follow up with PMD Dr. Wise regarding urine culture sensitivity results. Discussed with Dr. Steward.
[2017-05-01 08:00] LABS: CHLORIDE 100 mmol/L (98-107); POTASSIUM 3.8 mmol/L (3.6-5.2); SODIUM 135 mmol/L (132-148)
[2017-05-01 08:02] LABS: ALKALINE PHOSPHATASE 73 U/L (38-126); AST/SGOT 23 U/L (17-59); BILIRUBIN,TOTAL 0.7 mg/dL (0.2-1.3); CARBON DIOXIDE 23 mmol/L (22-30); GFR AFRICAN-AMERICAN > 60
[2017-05-01 08:03] LABS: ALT/SGPT 27 U/L (21-72); BLOOD UREA NITROGEN 14 mg/dL (9-20); GLUCOSE,RANDOM 163 mg/dL (75-110); PHOSPHOROUS 3.1 mg/dL (2.5-4.5)
[2017-05-01 08:04] LABS: CALCIUM 8.8 mg/dl (8.6-10.4); MAGNESIUM 1.8 mg/dL (1.6-2.3)
[2017-05-01] MEDS: (Novolog) Insulin Aspart, Recombinant 100 u/ml 10 ml vial SC SCH ×3 (08:15→17:18)
[2017-05-01 09:59] LABS: RBC URINE 241 /hpf (0-3); URINE BILIRUBIN NEGATIVE (NEGATIVE); URINE BLOOD 3+ (NEGATIVE); URINE COLOR Amber (YELLOW); URINE GLUCOSE (UA) 3+ mg/dL (Normal); URINE KETONE TRACE mg/dL (NEGATIVE); URINE LEUKOCYTE ESTERASE 1+ Leu/uL (Negative); URINE PROTEIN 1+ mg/dL (NEGATIVE); URINE UROBILINOGEN NORMAL mg/dL (0.2-1.0); WBC URINE 106 /hpf (0-5)
[2017-05-01] MEDS ORDERED: Sodium Chloride 0.9% 500 ML IV ONE (14:21)
[2017-05-01 15:39] VITALS: BP 130/78; PULSE 71; RESP 20; TEMP 98.8
--- NOTE | 2017-05-01 17:20 | PCM.URO ---
Urology Progress Note - General General: Tolerating Diet - Subjective Abdominal Pain: Yes (MILD SP DISCOMFORT) Flank Pain: No Nausea: No Vomiting: No Dysuria: Yes Hematuria: No Weak Stream: Yes Stone Passed: No Dsypnea: No Chest Pain: No Fever & Chills: No - Objective Lab Results Last 24 Hours: Laboratory Results - last 24 hr 04/30/17 05/01/17 05/01/17 21:10 05:59 07:22 WBC 6.5 RBC 4.41 Hgb 10.7 L Hct 32.5 L MCV 73.6 L MCH 24.2 L MCHC 32.9 L RDW 17.1 H Plt Count 285 MPV 8.8 Neut % (Auto) 64.4 Lymph % (Auto) 20.2 [place] % (Auto) 12.7 H Eos % (Auto) 2.2 Baso % (Auto) 0.5 Neut # 4.2 Lymph # 1.3 [place] # 0.8 Eos # 0.1 Baso # 0.0 Sodium Potassium Chloride Carbon Dioxide Anion Gap BUN Creatinine Est GFR ( Amer) Est GFR (Non-Af Amer) POC Glucose (mg/dL) 236 H 186 H Random Glucose Calcium Phosphorus Magnesium Total Bilirubin AST ALT Alkaline Phosphatase Total Protein Albumin Globulin Albumin/Globulin Ratio Urine Color Urine Clarity Urine pH Ur Specific [place] Urine Protein Urine Glucose (UA) Urine Ketones Urine Blood Urine Nitrate Urine Bilirubin Urine Urobilinogen Ur Leukocyte Esterase Urine WBC (Auto) Urine RBC (Auto) 05/01/17 05/01/17 05/01/17 07:22 09:32 11:34 WBC RBC Hgb Hct MCV MCH MCHC RDW Plt Count MPV Neut % (Auto) Lymph % (Auto) [place] % (Auto) Eos % (Auto) Baso % (Auto) Neut # Lymph # [place] # Eos # Baso # Sodium 135 Potassium 3.8 Chloride 100 Carbon Dioxide 23 Anion Gap 16 BUN 14 Creatinine 1.0 Est GFR ( Amer) > 60 Est GFR (Non-Af Amer) > 60 POC Glucose (mg/dL) 315 H Random Glucose 163 H Calcium 8.8 Phosphorus 3.1 Magnesium 1.8 Total Bilirubin 0.7 AST 23 ALT 27 Alkaline Phosphatase 73 Total Protein 7.0 Albumin 3.5 Globulin 3.5 Albumin/Globulin Ratio 1.0 Urine Color [place] Urine Clarity Hazy Urine pH 5.0 Ur Specific [place] 1.016 Urine Protein 1+ H Urine Glucose (UA) 3+ H Urine Ketones Trace Urine Blood 3+ H Urine Nitrate Positive H Urine Bilirubin Negative Urine Urobilinogen Normal Ur Leukocyte Esterase 1+ H Urine WBC (Auto) 106 H Urine RBC (Auto) 241 H 05/01/17 16:35 WBC RBC Hgb Hct MCV MCH MCHC RDW Plt Count MPV Neut % (Auto) Lymph % (Auto) [place] % (Auto) Eos % (Auto) Baso % (Auto) Neut # Lymph # [place] # Eos # Baso # Sodium Potassium Chloride Carbon Dioxide Anion Gap BUN Creatinine Est GFR ( Amer) Est GFR (Non-Af Amer) POC Glucose (mg/dL) 183 H Random Glucose Calcium Phosphorus Magnesium Total Bilirubin AST ALT Alkaline Phosphatase Total Protein Albumin Globulin Albumin/Globulin Ratio Urine Color Urine Clarity Urine pH Ur Specific [place] Urine Protein Urine Glucose (UA) Urine Ketones Urine Blood Urine Nitrate Urine Bilirubin Urine Urobilinogen Ur Leukocyte Esterase Urine WBC (Auto) Urine RBC (Auto) Intake & Output: Intake & Output 04/30/17 05/01/17 05/01/17 18:59 06:59 18:59 Intake Total 900 900 Output Total 925 400 Balance -25 -400 900 Intake: Intake, IV Amount 500 500 Right Forearm 500 500 Oral 400 400 Output: Urine 925 400 Urethral (Blount) 700 Urine, Voided 225 400 Other: # Voids Urethral (Blount) 3 Vital Signs: Vital Signs - 24 hr 04/30/17 05/01/17 05/01/17 23:15 07:07 09:53 Temperature 99.7 F H 99.6 F Pulse Rate 85 81 81 Respiratory 20 18 Rate Blood Pressure 114/60 99/62 L 116/73 O2 Sat by Pulse 96 96 Oximetry 05/01/17 15:35 Temperature 98.8 F Pulse Rate 71 Respiratory 20 Rate Blood Pressure 130/78 O2 Sat by Pulse 96 Oximetry - Physical Exam Abdominal Exam: Soft (BLADDER SCAN REVEALS RESIDUAL OF 44CC), Non-Tender, Non- Distended Back: No CVA Tenderness Urinary Catheter Draining Well: No (CATHETER HAD BEEN REMOVED.) - Plan Intake & Output: Yes See Orders: Yes Additional Information: IMP: STABLE P CATHETER REMOVAL. IMPROVED RE PREVIOUS URINARY RETENTION. HX OF BLADDER TUMOR. PLAN: DISCUSSED W PT AND WITH NURSING STAFF - Date & Time of Note Date: 05/01/17 Time: 10:50
== END 2017-05-01 22:35 | disposition left against medical advice (07) | DRG 670 ==
LOC: C.SDS 12:22 → C.6T 19:10
PROVIDERS: ADMIT Urology; ATTEND Urology
PROC: 0TBB8ZZ Excision of Bladder, Via Natural or Artificial Opening Endoscopic (ICD-10-PCS; principal; 2017-04-30)
PROC: 0T5B8ZZ Destruction of Bladder, Via Natural or Artificial Opening Endoscopic (ICD-10-PCS; 2017-04-30)
PROC: BT14ZZZ Fluoroscopy of Kidneys, Ureters and Bladder (ICD-10-PCS; 2017-04-30)
PROC: 0T788DZ Dilation of Bilateral Ureters with Intraluminal Device, Via Natural or Artificial Opening Endoscopic (ICD-10-PCS; 2017-04-30)
DX: C67.0 Malignant neoplasm of trigone of bladder (principal); R31.0 Gross hematuria; G89.18 Other acute postprocedural pain; E11.9 Type 2 diabetes mellitus without complications; R33.9 Retention of urine, unspecified; R97.20 Elevated prostate specific antigen [PSA]; I10 Essential (primary) hypertension; I25.10 Atherosclerotic heart disease of native coronary artery without angina pectoris; E78.00 Pure hypercholesterolemia, unspecified; Z79.4 Long term (current) use of insulin; Z79.899 Other long term (current) drug therapy; Z95.5 Presence of coronary angioplasty implant and graft; I25.2 Old myocardial infarction; Z87.891 Personal history of nicotine dependence

== ENCOUNTER 2017-07-23 06:31 | Day surgery (SDC) | payer OTHER ==
[2017-07-23 06:50] VITALS: BMI 28.4
[2017-07-23] MEDS ORDERED: Lactated Ringer's 1,000 ML IV ONE ×2 (07:24)
[2017-07-23] MEDS: cefTRIAXone IV 1 gm in Dextros 50 ML IVPB ONE ×2 (07:25→08:15)
[2017-07-23] MEDS ORDERED: Lidocaine 2% Jelly (Uro-Jet) ONE (07:33)
[2017-07-23 07:43] LABS: BASO % 0.7 % (0.0-2.0); EOS # 0.2 K/uL (0.0-0.7); EOS % 3.2 % (0.0-4.0); HEMATOCRIT 37.3 % (35.0-51.0); LYMPH # 1.9 K/uL (1.0-4.3); LYMPH % 38.9 % (20.0-40.0); MEAN CELL VOLUME 74.9 fL (80.0-94.0); MEAN CORPUSCULAR HEMOGLOBIN 23.9 pg (27.0-31.0); MEAN CORPUSCULAR HGB CONC 31.8 g/dL (33.0-37.0); MONO # 0.4 K/uL (0.0-0.8); MONO % 8.8 % (0.0-10.0); NRBC % 0.1 % (0.0-2.0); RED CELL DISTRIBUTION WIDTH 18.6 % (11.5-14.5)
[2017-07-23 07:54] LABS: CHLORIDE 110 mmol/L (98-107); POTASSIUM 3.9 mmol/L (3.6-5.2); SODIUM 140 mmol/L (132-148)
[2017-07-23 07:57] LABS: BLOOD UREA NITROGEN 15 mg/dL (9-20); CARBON DIOXIDE 17 mmol/L (22-30); GFR AFRICAN-AMERICAN > 60; GLUCOSE,RANDOM 254 mg/dL (75-110); INR 1.1
[2017-07-23] MEDS ORDERED: Midazolam 2 MG/2 ML VIAL ONE (08:10)
[2017-07-23] MEDS ORDERED: Propofol 10 mg/ml Inj (20 ML) ONE (08:10)
[2017-07-23] MEDS ORDERED: Acetaminophen-Codeine 300/30 mg Tab PO PRN (08:45)
[2017-07-23] MEDS ORDERED: (Novolin R) Insulin Human Regular 100 units/ml vial IV STA (09:02)
[2017-07-23] MEDS ORDERED: (Novolin R) Insulin Human Regular 100 units/ml vial ONE (09:09)
[2017-07-23] MEDS ORDERED: Lactated Ringer's 1,000 ML IV SCH (09:30)
[2017-07-23 10:54] VITALS: RESP 15
[2017-07-23 11:20] VITALS: BP 111/66; PULSE 64; TEMP 97.6; O2SAT 99
[2017-07-23] MEDS ORDERED: HYDROmorphone 0.5 mg/0.5 ml ISec IVP PRN (12:00)
--- NOTE | 2017-07-25 08:02 | CARD ---
APPROVED REPORT EKG Measurement Heart [id number] <Conclusion> Normal sinus rhythm Inferior infarct, age undetermined Abnormal ECG
--- NOTE | 2017-09-03 06:56 | HP ---
Please see previously dictated notes. The patient is here today for a cystoscopy. This is a very pleasant gentleman who previously we did a prostatectomy on, TUR. He has had voiding dysfunction since then. Initially, he was voiding with a great flow. It sounds like this is some kind of bladder neck contracture, stricture, or meatal stricture or urethral stricture rather than any other specific issue. However, he is not resolving and we discussed the options and locations to do this and we are going here now for a cystoscopy and a possible meatal dilation or possible bladder neck incision. The cystoscopy went fine. We are going to make sure there is no residual tissue. PAST MEDICAL AND SURGICAL HISTORY: No other changes. The patient is . SOCIAL HISTORY: Essentially unremarkable. REVIEW OF SYSTEMS: Listed above, noncontributory. No weight loss, chest pain, or shortness of breath. PHYSICAL EXAMINATION: GENERAL: He is a well-nourished male in no apparent distress. VITAL SIGNS: Within normal limits included in the chart. LUNGS: Clear. HEART: Normal S1 and S2. ABDOMEN: Overall soft. The remainder of the exam is otherwise unremarkable. Wait till the Operating Room report. DIAGNOSES: Voiding dysfunction, hematuria, urinary retention. PLAN: As follows: Discussed the options, we are bringing him to the OR, we will put him back on anesthesia and plan for further treatment. The patient will be given antibiotic prophylaxis in the OR. The patient is explained risks, benefits, and alternatives. ADDENDUM: See the operative report, our findings were that of meatal stenosis and we did a meatal dilation, insertion of Blount catheter. Further plans will follow. Cong Espinal MD
--- NOTE | 2017-09-03 11:29 | OP ---
PROCEDURE DATE: 07/23/17 PREOPERATIVE DIAGNOSES: 1. Urinary retention. 2. Hematuria. 3. Voiding dysfunction. 4. Meatal stenosis. POSTOPERATIVE DIAGNOSES: 1. Urinary retention. 2. Hematuria. 3. Voiding dysfunction. 4. Meatal stenosis. PROCEDURE: Cystoscopy, meatal dilation. ESTIMATED BLOOD LOSS: Less than 25 mL. COMPLICATIONS: There were no complications. INDICATIONS: See history and physical for further details. This is a very pleasant gentleman who I know quite well. We did a previous prostatectomy, TUR, and he was voiding very well. Initially, the patient presented with gross hematuria, we were always concerned of malignancy as we are still concerned. That is why he is brought back here today. FINDINGS: Meatal stenosis. The remainder of the urethra, anterior urethra is normal, there are no strictures, actually opened very nicely. DESCRIPTION OF PROCEDURE: After obtaining informed consent, I discussed the options with the patient, we brought him to the OR, placed on a table. Routine monitors were placed. Time-out was called. We confirmed the patient. Antibiotic prophylaxis were given. We tried to introduce the cystoscope via the urethra, we were unable to. We then dilated the meatus with the soft dilators. and once we did this, we were able to scope direct through the way. We introduced a 22 scope. The entire procedure was done with the camera. was identified. The patient had nicely intact veru. The remainder was otherwise unremarkable. Bladder mucosa was within normal limits postop. The patient tolerated the procedure well without complications. Cong Espinal MD
== END 2017-07-23 11:40 | disposition home or self-care (01) ==
LOC: C.SDS 06:31
PROVIDERS: ATTEND Urology
DX: N35.9 Urethral stricture, unspecified (principal); R31.9 Hematuria, unspecified; I25.10 Atherosclerotic heart disease of native coronary artery without angina pectoris; Z95.5 Presence of coronary angioplasty implant and graft
CPT/HCPCS: 36415; 52281; 80048; 82948; 85025; 85610; 85730; 93005; C1769; J0696; J1580; J7120

== ENCOUNTER 2017-12-21 11:32 | Day surgery (SDC) | payer OTHER ==
[2017-12-21 11:33] VITALS: BMI 28.4
[2017-12-21 12:19] LABS: SQUAMOUS EPITHIAL 1 /hpf (0-5); URINE BACTERIA RARE (<OCC); URINE BILIRUBIN NEGATIVE (NEGATIVE); URINE BLOOD NEGATIVE (NEGATIVE); URINE CLARITY Clear (Clear); URINE COLOR Yellow (YELLOW); URINE GLUCOSE (UA) 1+ mg/dL (Normal); URINE LEUKOCYTE ESTERASE NEG Leu/uL (Negative); URINE NITRATE NEGATIVE (NEGATIVE); URINE PROTEIN 1+ mg/dL (NEGATIVE); URINE UROBILINOGEN NORMAL mg/dL (0.2-1.0)
[2017-12-21] MEDS ORDERED: Sodium Chloride 0.9% 1,000 ML IV ONE (12:24)
[2017-12-21] MEDS ORDERED: Sodium Chloride 0.9% 1,000 ML ONE (12:41)
--- NOTE | 2017-12-21 13:06 | C.PDOC ---
History Of Present Illness 62 y/o male with history of kidney stones presents to ED with complaints of right flank pain and hematuria x 1 week. Patient states he called Dr. Espinal who instructed patient to come to ED for further evaluation. Patient denies nausea, vomiting, testicular pain, dysuria or any other complaints at this time. Time Seen by Provider: 12/21/17 11:49 Chief Complaint (Nursing): Male Genitourinary History Per: Patient History/Exam Limitations: no limitations Onset/Duration Of Symptoms: Days Current Symptoms Are (Timing): Still Present Past Medical History Reviewed: Historical Data, Nursing Documentation, Vital Signs Vital Signs: Last Vital Signs Temp 97.9 F 12/21/17 16:26 Pulse 58 L 12/21/17 16:26 Resp 20 12/21/17 16:26 BP 133/74 12/21/17 16:26 Pulse Ox 99 12/21/17 16:26 - Medical History PMH: CAD, Diabetes, Fractures (LEFT ANKLE), Hypercholesterolemia Surgical History: Coronary Stent - [facility] Procedures DESTRUCTION OF BLADDER, ENDO (04/27/17) DILATION OF BILATERAL URETERS WITH INTRALUMINAL DEVICE, ENDO (04/27/17) EXCISION OF BLADDER, ENDO (04/27/17) EXTIRPATION OF MATTER FROM BLADDER, ENDO (04/02/17) FLUOROSCOPY OF KIDNEYS, URETERS AND BLADDER (04/27/17) OP RED-INT FIX TIB/FIBUL (11/06/98) REMOV INT FIX-TIB/FIBULA (02/12/99) Family History: States: No Known Family Hx - Social History Hx Tobacco Use: Yes Hx Alcohol Use: No Hx Substance Use: No - Immunization History Hx Tetanus Toxoid Vaccination: No Hx Influenza Vaccination: Yes Hx Pneumococcal Vaccination: No Review Of Systems Constitutional: Negative for: Fever, Chills Gastrointestinal: Positive for: Other (Flank pain). Negative for: Vomiting, Abdominal Pain Genitourinary: Positive for: Hematuria. Negative for: Dysuria Skin: Negative for: Rash Physical Exam - Physical Exam Appears: Non-toxic, No Acute Distress Skin: Warm, Dry, No Rash Head: Atraumatic, Normacephalic Eye(s): bilateral: Normal Inspection, EOMI Nose: Normal Oral Mucosa: Moist Neck: Normal ROM, Supple Chest: Symmetrical Cardiovascular: Rhythm Regular Respiratory: Normal Breath Sounds, No Accessory Muscle Use, No Rales, No Rhonchi , No Wheezing Gastrointestinal/Abdominal: Soft, No Tenderness, No Guarding, No Rebound, Other (Right flank tenderness) Back: No CVA Tenderness Extremity: Normal ROM, Capillary Refill (<2 seconds) Neurological/Psych: Oriented x3 ED Course And Treatment - Laboratory Results Result Diagrams: 12/21/17 13:05 12/21/17 13:05 O2 Sat by Pulse Oximetry: 99 (RA) Pulse Ox Interpretation: Normal - CT Scan/US Abdomen/Pelvis Other Rad Studies (CT/US): Read By Radiologist, Radiology Report Reviewed CT/US Interpretation: PROCEDURE: CT scan of the abdomen pelvis dated 2019. HISTORY: P pain. COMPARISON: None. TECHNIQUE: Contiguous axial images of the abdomen and pelvis performed without oral or intravenous contrast material. Additional 2 dimensional sagittal and reformats generated. Radiation dose: Total exam DLP = 760.95 mGy-cm. This CT exam was performed using one or more of the following dose reduction techniques: Automated exposure control, adjustment of the mA and/or kV according to patient size, and/ or use of iterative reconstruction technique. FINDINGS: LOWER THORAX: Minor bibasilar passive/dependent type atelectasis Lung bases otherwise are clear. No infiltrate effusion or basilar pneumothorax. Heart size normal. Minimal changes of gynecomastia bilaterally. LIVER: Liver is normal in size measuring approximately 17 cm in CC dimension. No obvious hepatic masses or collections seen on noncontrast study. No gross intrahepatic biliary ductal the. GALLBLADDER AND BILE DUCTS: Gallbladder is physiologically distended. No however note made of may represent layering sludge tendon portion of gallbladder. PANCREAS: The pancreas appears atrophic and fatty. No pancreatic masses or collections. SPLEEN: Unrema spleen exhibits normal size and attenuation pattern without mass. ADRENALS: Unr there are no adrenal lesions. KIDNEYS AND URETERS: There is mild right-sided hydronephrosis and hydroureter which extends to approximately the upper pelvis region (S1-S2 disc space level. No evidence of distal ureteral calculus identified. Rule out recently passed calculus. Small approximately 17 mm elliptical shaped low- attenuation focus upper pole left kidney consistent renal cyst. Second that small approximately 16 mm cyst midpole left kidney also present. BLADDER: Urinary bladder is incompletely distended which presumably in part accounts thick-walled appearance. Muscular hypertrophy may contribute. Note made of scattered areas of somewhat increased attenuation along the peripheral margins of bladder lumen ; rule out clot, debris. Rule out invasive endoluminal wall lesion -urothelial tumor. Correlation with urinalysis. Consider followup Urology consultation recommended. . REPRODUCTIVE: Prostate gland measures approximately 4.1 cm in transverse dimension. . APPENDIX: The appendix not seen however metallic clips adjacent to the wall of the cecum most likely represent sequela of appendectomy. Clinical correlation with history recommended. BOWEL: Evaluation of the bowel limited due the lack of oral contrast material. Stomach is incompletely distended. Visualized small bowel normal contour caliber. No evidence mechanical small bowel obstruction however there does appear to be fecalized content with in several loops of distal small bowel. . Moderate amount stool seen ascending and transverse colon consistent with mild/. PERITONEUM: Unremarkable. No fluid collection. No free air. Small fat containing bilateral inguinal hernias right slightly larger than latter. LYMPH NODES: No significant that adenopathy. VASCULATURE: Unremarkable. No aortic aneurysm. BONES: Minor multilevel degenerative spondylosis of the lower thoracic and lumbar spine. No compression fractures. Localized productive changes left the superolateral acetabular roof. OTHER FINDINGS: None. IMPRESSION: There is right-sided hydronephrosis and hydroureter of to the level of the mid pelvis (approximately S1-S2 level) with the ureter than the exhibits normal caliber distally with no evidence of ureteral calculi. Urinary bladder is thick-walled in appearance part due to incomplete distention and probably muscular hypertrophy however there are also ill-defined areas of increased attenuation along the luminal surface of the right more so than left. Findings could represent clot and/or debris however intraluminal invasive lesion hyper urothelial tumor must be excluded. These findings were discussed with KLARISSA Stoll at approximately 8:50 p.m. with written down and read back verification. Small left renal cysts as above. . No definitive CT evidence of nephrolithiasis. Changes of appendectomy as above. See above discussion for additional findings and details Progress Note: Patient was offered pain medication and declined. Discussed with Dr. Espinal who requests CT and for patient to go to OR . Disposition - Disposition Disposition: HOSPITALIZED Disposition Time: 16:46 Condition: STABLE - Clinical Impression Clinical Impression: Renal colic, Decreased renal function - PA / REFERENCE LIBRARY ASSISTANT / Resident Statement MD/DO has reviewed & agrees with the documentation as recorded. - Scribe Statement The provider has reviewed the documentation as recorded by the Scribe Maricsa Walker All medical record entries made by the Scribe were at my direction and personally dictated by me. I have reviewed the chart and agree that the record accurately reflects my personal performance of the history, physical exam, medical decision making, and the department course for this patient. I have also personally directed, reviewed, and agree with the discharge instructions and disposition.
[2017-12-21 13:14] LABS: BASO % 0.9 % (0.0-2.0); EOS # 0.2 K/uL (0.0-0.7); EOS % 3.8 % (0.0-4.0); HEMOGLOBIN 10.2 g/dL (12.0-18.0); LYMPH # 1.4 K/uL (1.0-4.3); LYMPH % 32.3 % (20.0-40.0); MEAN CORPUSCULAR HEMOGLOBIN 24.5 pg (27.0-31.0); MEAN CORPUSCULAR HGB CONC 33.1 g/dL (33.0-37.0); MEAN PLATELET VOLUME 8.8 fL (7.2-11.7); MONO # 0.4 K/uL (0.0-0.8); MONO % 8.8 % (0.0-10.0); NEUT # 2.3 K/uL (1.8-7.0); NEUT % 54.2 % (50.0-75.0); NRBC % 0.2 % (0.0-2.0); RBC 4.18 Mil/uL (4.40-5.90); WHITE BLOOD COUNT 4.3 K/uL (4.8-10.8)
[2017-12-21 13:20] LABS: PROTHROMBIN TIME 11.5 SECONDS (9.7-12.2)
[2017-12-21 13:41] LABS: ALB/GLOB RATIO 0.9 (1.0-2.1)
--- NOTE | 2017-12-21 14:55 | CT ---
PROCEDURE: CT scan of the abdomen pelvis dated 12/21/2019 HISTORY: P pain COMPARISON: None. TECHNIQUE: Contiguous axial images of the abdomen and pelvis performed without oral or intravenous contrast material. Additional 2 dimensional sagittal and reformats generated. Radiation dose: Total exam DLP = 760.95 mGy-cm. This CT exam was performed using one or more of the following dose reduction techniques: Automated exposure control, adjustment of the mA and/or kV according to patient size, and/or use of iterative reconstruction technique. FINDINGS: LOWER THORAX: Minor bibasilar passive/dependent type atelectasis Lung bases otherwise are clear. No infiltrate effusion or basilar pneumothorax. Heart size normal. Minimal changes of gynecomastia bilaterally. LIVER: Liver is normal in size measuring approximately 17 cm in CC dimension. No obvious hepatic masses or collections seen on noncontrast study. No gross intrahepatic biliary ductal the GALLBLADDER AND BILE DUCTS: Gallbladder is physiologically distended. No however note made of may represent layering sludge tendon portion of gallbladder PANCREAS: The pancreas appears atrophic and fatty. No pancreatic masses or collections. SPLEEN: Unrema spleen exhibits normal size and attenuation pattern without mass ADRENALS: Unr there are no adrenal lesions. KIDNEYS AND URETERS: There is mild right-sided hydronephrosis and hydroureter which extends to approximately the upper pelvis region (S1-S2 disc space level. No evidence of distal ureteral calculus identified. Rule out recently passed calculus. Small approximately 17 mm elliptical shaped low-attenuation focus upper pole left kidney consistent renal cyst. Second that small approximately 16 mm cyst midpole left kidney also present BLADDER: Urinary bladder is incompletely distended which presumably in part accounts thick-walled appearance. Muscular hypertrophy may contribute. Note made of scattered areas of somewhat increased attenuation along the peripheral margins of bladder lumen ; rule out clot, debris. Rule out invasive endoluminal wall lesion -urothelial tumor. Correlation with urinalysis. Consider followup Urology consultation recommended. . REPRODUCTIVE: Prostate gland measures approximately 4.1 cm in transverse dimension. . APPENDIX: The appendix not seen however metallic clips adjacent to the wall of the cecum most likely represent sequela of appendectomy. Clinical correlation with history recommended. BOWEL: Evaluation of the bowel limited due the lack of oral contrast material. Stomach is incompletely distended. Visualized small bowel normal contour caliber. No evidence mechanical small bowel obstruction however there does appear to be fecalized content with in several loops of distal small bowel. . Moderate amount stool seen ascending and transverse colon consistent with mild/. PERITONEUM: Unremarkable. No fluid collection. No free air. Small fat containing bilateral inguinal hernias right slightly larger than latter LYMPH NODES: No significant that adenopathy. VASCULATURE: Unremarkable. No aortic aneurysm. BONES: Minor multilevel degenerative spondylosis of the lower thoracic and lumbar spine. No compression fractures. Localized productive changes left the superolateral acetabular roof. OTHER FINDINGS: None. IMPRESSION: There is right-sided hydronephrosis and hydroureter of to the level of the mid pelvis (approximately S1-S2 level) with the ureter than the exhibits normal caliber distally with no evidence of ureteral calculi. Urinary bladder is thick-walled in appearance part due to incomplete distention and probably muscular hypertrophy however there are also ill-defined areas of increased attenuation along the luminal surface of the right more so than left. Findings could represent clot and/or debris however intraluminal invasive lesion hyper urothelial tumor must be excluded. These findings were discussed with KLARISSA Stoll at approximately 8:50 p.m. with written down and read back verification. Small left renal cysts as above. . No definitive CT evidence of nephrolithiasis Changes of appendectomy as above See above discussion for additional findings and details
[2017-12-21] MEDS ORDERED: Midazolam 2 MG/2 ML VIAL ONE (17:26)
[2017-12-21] MEDS ORDERED: Propofol 10 mg/ml Inj (20 ML) ONE (17:26)
[2017-12-21] MEDS ORDERED: cefTRIAXone IV 1 gm in Dextros 1 GM in Sodium Chloride 0.9% 100 ML IVPB SCH (17:45)
[2017-12-21] MEDS ORDERED: Iohexol 240 (50 ml) ONE (17:46)
[2017-12-21 18:56] VITALS: O2SAT 100
[2017-12-21 19:16] VITALS: RESP 16
[2017-12-21 19:24] VITALS: BP 144/72; PULSE 66
[2017-12-21 19:36] VITALS: TEMP 97.6
--- NOTE | 2017-12-22 08:46 | RAD ---
PROCEDURE: HISTORY: As above COMPARISON: None TECHNIQUE: Total fluoroscopic time utilized during the procedure: 8.9 second seconds. Total dose 1.21 mGy cm squared FINDINGS: Submitted images from the current procedure: 1 Please refer to the physician's notes performing the procedure. IMPRESSION: Less than 1 hour fluoroscopic time utilized during performance of the procedure
--- NOTE | 2017-12-22 08:54 | RAD ---
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 Second image labeled "Post " interval right ureteral stent double-J stent placement proximal coil right intrarenal pelvis distal expected bladder. Interval right hydronephrosis. BOWEL: Moderate stool retention. . No obstruction. Inferred right appendectomy clips - similar . BONES: Bilateral hip arthrosis - morphology compatible with femoral acetabular impingement. OTHER FINDINGS: None. IMPRESSION: Interval right ureteral double-J stent placement with interval right hydronephrosis. No urolithiasis appreciated
--- NOTE | 2017-12-24 17:19 | HP ---
UROLOGY EMERGENCY ADMISSION HISTORY OF PRESENT ILLNESS: Mr. Sun is a very pleasant, somewhat noncompliant 62-year-old male with history of transitional cell carcinoma of the bladder. He has not been following up on a routine basis. He has been feeling well until recently where he did experience gross hematuria and some right flank pain. We discussed options. We actually were planning to work him up, but actually he came to the emergency room today with severe right flank pain and gross hematuria. We then arranged for a CAT scan. See the CAT scan listed below. It is right hydronephrosis with some mass around the bladder. No definite stone seen. We are bringing him here as an emergency, we are going to do a cystoretrograde stent, and we are going to identify the cause for pathology (especially with a history of bladder cancer, we are very worried about the possibility of invasive bladder cancer). See below. PAST MEDICAL AND SURGICAL HISTORY: As listed above. No history of an PR or CVA. His medical doctor is . SOCIAL HISTORY: He is here with his . Otherwise, unremarkable. He works ____. REVIEW OF SYSTEMS: As listed above. No real weight loss, chest pain, shortness of breath, or the like. No major constitutional complaints. PHYSICAL EXAMINATION: GENERAL: In somewhat distress. VITAL SIGNS: Within normal limits. HEART: Normal S1 and S2. ABDOMEN: Overall soft, nontender, no flank masses. He is somewhat tender, but not real CVA tenderness (no pyelonephritis). GENITOURINARY: Normal phallus. There is no testicular mass. RECTAL: Showing prostate soft and smooth. LABORATORY DATA: See chart CT scan, this is significant. There is significant amount of right hydronephrosis. No definite stone seen. Radiographs (1:40) in the bladder, it looks like there is some abnormal lesion, may be submucosal. DIAGNOSES: Gross hematuria, right hydronephrosis, history of transitional cell carcinoma. We discussed the options at this point. I am very worried, the patient is a 62-year-old gentleman with history of transitional cell carcinoma, right hydronephrosis and this case is very concerning for a muscle invasive sort of cancer. So at this point, bringing this as an emergency. We will bring him over to the OR, we are going to do a cystoretrograde and a stent if we are able to and then we will discuss further plans. I discussed this with the patient. PLAN: 1. Emergency admission. 2. Antibiotics. 3. OR now. ADDENDUM: See the operative note. Based on the above findings, it is bladder tumor right over the orifice. We were able to get a stent into it. In terms of what appears to be in the bladder, I did not do any biopsy. This appears to be superficial, but more concerning of a CAT scan, which I have had a chance to view it. It looks like there is something causing the hydronephrosis, that could be a muscular invasion. For further plans, we need to follow. But now that we have a stent in, we feel get about resecting deep. Cong Espinal MD
--- NOTE | 2017-12-24 18:14 | OP ---
PROCEDURE DATE: 12/21/2017 PREOPERATIVE DIAGNOSES: Gross hematuria, right hydronephrosis, right flank pain and history of transitional cell carcinoma. POSTOPERATIVE DIAGNOSES: Gross hematuria, right hydronephrosis, right flank pain, history of transitional cell carcinoma, and recurrent bladder cancer. PROCEDURES PERFORMED: Cystoscopy, left retrograde pyelogram, right retrograde pyelogram and a right double J stent insertion. SURGEON: Chalo Espinal M.D. COMPLICATIONS: There were no complications. ESTIMATED BLOOD LOSS: Less than 10 mL. FINDINGS: 1. Normal anterior urethra, no strictures; on viewing it, visually occlusive about 3 cm. 2. Significant finding is bladder cancer, multiple spots, along the bladder on the right side. Multiple pictures were taken. They appeared to be very papillary and low grade (this is surprising), though it is due to the finding of the right hydronephrosis. The other though is that there is growth of bladder cancer over the ureteral orifice. In fact, it obscured the orifice to the point through the bladder that before I could not see the ureteral orifice. We were able to gain access just by symmetry of where left ureteral orifice was and then poking gently and actually just finding the ureteral orifice underneath the bladder cancer itself. No biopsies were taken today. See the plans listed below. We were able to successfully get a double J stent in. There were no complications. INDICATION: See history and physical for details. This is a very pleasant, but somewhat noncompliant gentleman with history of transitional cell carcinoma, who has not been in because he was not having problems until recently and while we were getting ready for it, he actually presented to the emergency room. DESCRIPTION OF PROCEDURE: After obtaining informed consent, the patient was placed on the table. Routine monitors were placed. Time-out confirmed the patient, positioning, antibiotic prophylaxis etc., all this was done. Now we introduced the cystoscope via urethra. Anterior urethra was normal, no strictures on reviewing it, but minimally visually occlusive. The ureteral orifice on the left side identified, not on the right side. On the right side, there are multiple tumors, multiple pictures were taken. It all appeared to be somewhat papillary in nature. At this point, I know he has right hydronephrosis because of his tumor. These appeared to be superficial. It could be though just because of location as it is right on the orifice. It is causing the hydronephrosis or more concerning could be that there is a deep lesion somewhere that is a little more aggressive, causing hydronephrosis. In the meantime, no other tumors were identified. There were multiple ones all located on the right side. The bladder was inspected carefully. At this point, the intention was to introduce a stent. So I cannot see the orifice, we went to the left side and I identified the orifice. I took multiple pictures. At this point, I very carefully and gently approximated where the right ureteral orifice should be with my cardiovascular physician assistant helping me and with an open ended and a wire technique, we gently probed and just by the right positioning, the wire went up and once this went up and I could fluoro it and on the fluoro, I put the open ended ureteral. I then removed the wire and injected the contrast that confirmed our positioning. Once we confirmed that was in place, put a double J stent in. We then reinspected and certainly this was in good location. Multiple pictures were taken. The bladder was emptied, cystoscope was removed. The patient tolerated without complications. We are going to bring the patient back for a full TURBT. If this could be possible, then we will discuss further options. Risks and benefits were discussed with the patient at length, pre and post. But at this point, we feel confident that this is transitional cell carcinoma and we will have to see if there are any deep lesions. Further plans will follow. Cong Espinal MD
== END 2017-12-21 19:50 | disposition home or self-care (01) ==
LOC: C.ER 11:32 → C.SDS 15:20
PROVIDERS: ATTEND Urology
DX: R31.0 Gross hematuria (principal); N13.30 Unspecified hydronephrosis; Z87.442 Personal history of urinary calculi; Z87.891 Personal history of nicotine dependence; E78.00 Pure hypercholesterolemia, unspecified; E11.9 Type 2 diabetes mellitus without complications; I25.10 Atherosclerotic heart disease of native coronary artery without angina pectoris; Z95.5 Presence of coronary angioplasty implant and graft; Z90.49 Acquired absence of other specified parts of digestive tract; Z85.51 Personal history of malignant neoplasm of bladder
CPT/HCPCS: 52332; 74019; 74176; 80053; 81001; 82948; 85025; 85610; 85730; 87086; 96360; 99285; C1758; C1769; C2617; J0696; J7040

== ENCOUNTER 2018-01-11 10:59 | Day surgery (SDC) | payer OTHER ==
[2018-01-11] MEDS ORDERED: Midazolam 2 MG/2 ML VIAL ONE (13:57)
[2018-01-11] MEDS ORDERED: Propofol 10 mg/ml Inj (20 ML) ONE (13:57)
[2018-01-11] MEDS ORDERED: Lactated Ringer's 1,000 ML IV SCH (15:00)
[2018-01-11] MEDS: HYDROmorphone 0.5 mg/0.5 ml ISec IVP PRN ×2 (15:01→15:15)
[2018-01-11] MEDS ORDERED: Lactated Ringer's 1,000 ML IV ONE (15:15)
[2018-01-11 16:13] VITALS: RESP 16
[2018-01-11] MEDS ORDERED: Acetaminophen-Codeine 300/30 mg Tab PO STA (17:33)
[2018-01-11 18:24] VITALS: BP 128/72; PULSE 75; TEMP 97.1; O2SAT 100
--- NOTE | 2018-02-08 05:12 | HP ---
REASON FOR ADMISSION: TURBT. HISTORY OF PRESENT ILLNESS: Mr. Sun is a very pleasant gentleman who has history of transitional cell carcinoma. He is in fact very pleasant, but extremely gentleman. He only came in because he had gross hematuria and some flank pain. What we did, see the previously dictated notes. We found a bladder cancer via the ureteral orifice. At that time, we gently carefully put a retrograde pyelogram. He had hydronephrosis on the patient's right side. PROCEDURE: We did a cystoscopy and stent insertion. Today he is here for the full TURBT. We had a chance to discuss the patient's risks, benefits, and treatment alternatives, and our recommendation after today's TURBT, is going to be for intravesical chemotherapy or intravesical BCG therapy. But today he is here for TURBT. PAST MEDICAL AND SURGICAL HISTORY: No history of AK, CVA. SOCIAL HISTORY: Unremarkable. MEDICATIONS: See chart. ALLERGIES: NONE. REVIEW OF SYSTEMS: Listed above. No weight loss or chest pain. PHYSICAL EXAMINATION: GENERAL: Well-nourished male, in no apparent distress. VITAL SIGNS: Within normal limits, included in the chart. NECK: No cervical or axillary lymphadenopathy. LUNGS: Clear. HEART: Normal S1 and S2. ABDOMEN: Overall soft. No flank masses. GENITOURINARY: No testicular masses. RECTAL: 20 to 30 gm prostate soft and smooth. DIAGNOSES: Gross hematuria, voiding dysfunction, right hydronephrosis, right flank pain, status post now surgical stent. With the findings on previous cystocele of dictated notes, that the patient has a bladder tumor right over the ureteral orifice. PLAN: As follows, we are planning to resect the tumor in full. It looks very papillary superficial bladder cancer by gross appearance, blood test with the previous pathology was. But we are all concerned because per the previous pathology reports, we are concerned for the possibility for a more aggressive lesion. PLAN: As follows: 1. Antibiotic prophylaxis. 2. TURBT and then further plans will follow. All this has been explained to the patient in great detail. Cong Espinal MD [facility] # [id number]
--- NOTE | 2018-02-08 05:20 | OP ---
PROCEDURE DATE: PREOPERATIVE DIAGNOSES: Bladder cancer, gross hematuria, right hydronephrosis, and history of bladder cancer. POSTOPERATIVE DIAGNOSES: Bladder cancer, gross hematuria, right hydronephrosis, and history of bladder cancer. PROCEDURE: Transurethral resection of bladder tumor for right ureteral orifice tumor. COMPLICATIONS: There were no complications. ESTIMATED BLOOD LOSS: Less than 25 mL. At the termination of the procedure, the patient has a Blount catheter and a double-J stent. INDICATIONS: See the history and physical for further details. This is a very pleasant gentleman who is here now for the above procedure. The patient has a history of bladder cancer. He has right now right ureteral stent in and he is here today for TURBT. I discussed with the patient the risks, benefits, and treatment alternatives. I discussed our recommendations and plans. A a very pleasant, but noncompliant gentleman, planned today for just TURBT. we need to remove the stent. I do want to mention one other thing that urology outline is normal. Normal urethra, no strictures. On reviewing it, visually occlusive about 2 to 3 cm. The most important is that there is no visible tumor. At the termination of the procedure, there was no visible tumor (we have completely resected the tumor). DESCRIPTION OF PROCEDURE: After obtaining informed consent, the patient was placed on the operating table. Routine monitor was placed. Time-out was called to confirm the patient and positioning. Antibiotic prophylaxes were used. We introduced the cystoscope via the urethra, anterior urethra was normal. No strictures. Verumontanum is large, visually occlusive from prostate. The ureteral orifice identified. The old double J stent seen in place. The bladder was tumor identified and multiple pictures were taken and saved. We now converted to resectoscope. We began our resection. We set the cautery settings at 180 and 80. We resected the in its entirety. We then carefully, gently, deeply, and meticulously achieved hemostasis. To the point that there is no bladder cancer left over. At this point we completed the procedure. The patient tolerated the procedure without complication. We washed out all the specimens and the specimens sent off to the lab. The patient tolerated the procedure without complications. Multiple pictures were taken. Cong Espinal MD [facility] # [id number]
== END 2018-01-11 18:28 | disposition home or self-care (01) ==
LOC: C.SDS 10:59
PROVIDERS: ATTEND Urology
DX: C67.9 Malignant neoplasm of bladder, unspecified (principal); N13.30 Unspecified hydronephrosis; R31.0 Gross hematuria; Z85.51 Personal history of malignant neoplasm of bladder; Z91.19 Patient's noncompliance with other medical treatment and regimen; E11.9 Type 2 diabetes mellitus without complications; I25.10 Atherosclerotic heart disease of native coronary artery without angina pectoris; E78.5 Hyperlipidemia, unspecified; Z79.84 Long term (current) use of oral hypoglycemic drugs; Z79.02 Long term (current) use of antithrombotics/antiplatelets
CPT/HCPCS: 52240; 82948; 88305; J1170; J7120

== ENCOUNTER 2018-01-18 12:35 | Day surgery (SDC) | payer OTHER ==
[2018-01-18] MEDS ORDERED: Dextrose 50% SYRINGE Inj (50 ml) IV STA (16:02)
[2018-01-18] MEDS ORDERED: DiphenhydrAMINE 50 mg/ml Inj ONE (16:07)
[2018-01-18] MEDS ORDERED: Dextrose 50% SYRINGE Inj (50 ml) ONE (16:09)
[2018-01-18] MEDS ORDERED: Metoprolol 1 mg/ml Inj IVP ONE (16:54)
[2018-01-18] MEDS ORDERED: Propofol 10 mg/ml Inj (20 ML) ONE (17:00)
[2018-01-18] MEDS ORDERED: Povidone Iodine 5% Spr TP ONE (17:06)
[2018-01-18] MEDS ORDERED: HYDROmorphone 0.5 mg/0.5 ml ISec IVP PRN (17:30)
[2018-01-18 18:22] VITALS: TEMP 98; O2SAT 100
[2018-01-18 18:23] VITALS: BP 123/90; PULSE 65; RESP 18
--- NOTE | 2018-01-19 04:52 | OP ---
PROCEDURE DATE: 01/18/2018 PREOPERATIVE DIAGNOSES: 1. Right hydronephrosis. 2. Right-sided bladder tumor on the bladder. POSTOPERATIVE DIAGNOSES: 1. Right hydronephrosis. 2. Right-sided bladder tumor on the bladder. PROCEDURE: Cystoscopy and removal of double J stent insertion. SURGEON: Cong Espinal MD. COMPLICATIONS: None. INDICATIONS: See previously dictated history and physical and operative reports. The patient is here today for cystoscopy and stent removal. PAST MEDICAL AND SURGICAL HISTORY: Otherwise, unremarkable. No changes. UROLOGY OPERATIVE FINDINGS: Are as follows: 1. . 2. . 3. The bladder mucosa is healing well. I do not see any visible tumor for sure. There is some erythema around the orifice. Multiple pictures are taken and saved. The stent was removed grossly intact. Really, no encrustation noted. See the history and physical and see the previously dictated notes. Very pleasant lady, here for the above procedure. We discussed risks, benefits, and treatment alternatives. We discussed risk recurrence, we discussed risk of leaving the tube in. After discussing all the options he is here for the above procedure. After obtaining the informed consent, the patient placed on the table. Routine monitor was placed. Time off was called and to confirm the patient and positioning. Antibiotic prophylaxis given. I introduced the cystoscope via urethra under direct vision. Anterior urethra normal, no strictures, on viewing it is ____ 3 cm. We now inspected right ureteral orifice, right ureter was grossly intact. We removed the right double J stent without difficulty. There were no complications. The patient tolerated the procedure well without any complications. We are going to do repeat ultrasound of the kidney as immediately as possible. Cong Espinal MD
--- NOTE | 2018-01-19 05:05 | HP ---
UROLOGY.ADMISSION HISTORY AND PHYSICAL REASON FOR ADMISSION: For removal of stent. HISTORY OF PRESENT ILLNESS: A very pleasant gentleman. Mr. Sun is a 62-year-old very pleasant gentleman who we recently did a TURBT. What we have found initially was bladder tumor at the right ureteral orifice and he had right hydronephrosis, right flank pain, hematuria. He had a history of bladder tumor, it has now been treated with BCG or Mitomycin. (see below. I going to recommend this after the procedure, but today he is here for stent removal. PAST MEDICAL AND SURGICAL HISTORY: Is as follows: No changes. History of AR and CVA. REVIEW OF SYSTEMS: As above. MEDICATIONS: See chart. PHYSICAL EXAM: GENERAL: Well nourished, in no apparent distress. VITAL SIGNS: Within normal limits, included in the chart. LUNGS: Clear. ABDOMEN: Soft, nontender. No flank mass was appreciated. DIAGNOSES: Bladder cancer, right hydronephrosis. PLAN: Cystoscopy and stent removal. We will provide antibiotic prophylaxis ____. I discussed with the patient my recommendation is going to be for Mitomycin today intravascularly. , we will discuss further options. Cong Espinal MD
== END 2018-01-18 18:36 | disposition home or self-care (01) ==
LOC: C.SDS 12:35
PROVIDERS: ATTEND Urology
DX: N13.30 Unspecified hydronephrosis (principal); Z46.6 Encounter for fitting and adjustment of urinary device; C67.9 Malignant neoplasm of bladder, unspecified; I25.2 Old myocardial infarction; Z86.73 Personal history of transient ischemic attack (TIA), and cerebral infarction without residual deficits
CPT/HCPCS: 52310; 82948; J7070

== ENCOUNTER 2018-05-24 13:14 | Day surgery (SDC) | payer OTHER ==
[2018-05-10 10:58] VITALS: BMI 28.5
[2018-05-24] MEDS ORDERED: Dextrose 50% SYRINGE Inj (50 ml) ONE (15:44)
[2018-05-24] MEDS ORDERED: Dextrose 50% SYRINGE Inj (50 ml) IV STA (15:45)
[2018-05-24] MEDS ORDERED: Oxycodone/Acetaminophen 5/325 mg Tab PO PRN (16:46)
[2018-05-24] MEDS ORDERED: cefTRIAXone IV 1 gm in Dextros 50 ML IVPB ONE (16:46)
[2018-05-24] MEDS ORDERED: Midazolam 2 MG/2 ML VIAL ONE (16:54)
[2018-05-24] MEDS ORDERED: HYDROmorphone 0.5 mg/0.5 ml ISec IVP PRN (17:39)
[2018-05-24 18:18] VITALS: BP 124/64; PULSE 64; RESP 18; TEMP 97; O2SAT 100
--- NOTE | 2018-05-24 18:25 | RAD ---
HISTORY: RT URETERAL MASS COMPARISON: Abdomen KUB 12/21/2017. FINDINGS: BOWEL: Right double-J ureteral stent reiterated with prior magnetic contrast at the right renal collecting system now cleared. No radiodense calculi identified adjacent to the ureteral stent. None is seen in the urinary bladder or neither renal silhouette as imaged. Nonobstructive bowel gas pattern appreciated. Surgical clips reiterated right lower quadrant abdomen. BONES: Degenerative hip changes are appreciate. No acute fracture or destructive bony lesion is seen throughout the visualized bony abdomen and pelvis. OTHER FINDINGS: None. IMPRESSION: Right double-J ureteral stent in position, stable. No adjacent radiodense calculi.
--- NOTE | 2018-05-24 18:32 | RAD ---
PROCEDURE: Intraoperative Fluoroscopy. HISTORY: RT URETERAL MASS FINDINGS: Fluoroscopic assistance was provided for right retrograde ureteronephrogram. Please refer to the operative report from ISMAEL Prater, , MD BISHOP. 11.4 seconds of fluoro time was utilized with a total radiation dose of [id number] mGym2.
--- NOTE | 2018-06-07 20:29 | OP ---
PROCEDURE DATE: 05/24/2018 PREOPERATIVE DIAGNOSES: Gross hematuria, right hydronephrosis, ureteral tumor, and bladder cancer. POSTOPERATIVE DIAGNOSES: Gross hematuria, right hydronephrosis, ureteral tumor, and bladder cancer. PROCEDURES: Cystoscopy, removal of a right double-J stent, right ureteroscopy, right ureteral biopsy and fulguration, and insertion of a right double-J stent. COMPLICATIONS: There were no complications. FINDINGS: There are some low-grade bladder tumors present still in the bladder and the ureteral lesion is circumferential. It looks very low grade in appearance, not overly aggressive in appearance. Nothing else is visualized as abnormal. Biopsies taken and fulgurated. INDICATIONS: See history and physical for further details. Very pleasant but seemingly not compliant gentleman who is here for the above-listed procedure. BLOOD LOSS: Less than 10 mL. FINDINGS: As mentioned. DESCRIPTION OF PROCEDURE: After obtaining informed consent, the patient was placed on the table. Routine monitor was placed. Time-out was called to confirm the patient and positioning. Antibiotics were administered. the old ureteral stent was removed without difficulty. A wire was passed upto the kidney without difficulty. Once we had the wire in position, we introduced a short rigid ureteroscope adjacent to the wire. We identified the lesions, biopsied. At this time, we passed a wire back up to the kidney. The patient tolerated the procedure well without complication. PLAN: The plan is to check the pathology and then afterwards, I am going to ask the patient to get a second opinion. At this point, the general recommendations would be for a nephroureterectomy except the patient has just a low grade lesion. Therefore, perhaps we do not need to remove the entire kidney. I will need to discuss this further, but more importantly, I am planning to ask the patient to go get a second opinion for further recommendations. Cong Espinal MD
--- NOTE | 2018-06-08 06:47 | HP ---
REASON FOR ADMISSION: Gross hematuria and for ureteral biopsy. HISTORY OF PRESENT ILLNESS: Mr. Hernandez is a very pleasant gentleman, who has very strong work ethics, very pleasant but noncompliant gentleman mostly secondary to the fact that he wants to work. He has a known low-grade transitional cell carcinoma of the bladder and now he has in the lower ureter. He is here today for a biopsy. Previously, in [facility], I have been in visit with him and we put a stent there, he had hydronephrosis and received a CAT scan, which we watched there. Today, he is here for biopsy of the ureter. This is to confirm the pathology that he has transitional cell carcinoma and to make recommendation. PAST MEDICAL AND SURGICAL HISTORY: As listed on the chart. Previously, when I first met him, he had been on Coumadin or some other blood thinner. He is currently no longer on this. He is very pleasant, but I do not think he attends his medical doctor on a regular visit. Today, he is being admitted for cystourethroscopy, see below. Past medical and surgical history as listed on the chart. Currently, he is not seeing a doctor on a regular basis. REVIEW OF SYSTEMS: As list above, otherwise noncontributory. SOCIAL HISTORY: He is . He lives with his . Otherwise, unremarkable. He has no history of smoking or chemical exposure. MEDICATIONS: See chart. ALLERGIES: SEE CHART. PHYSICAL EXAMINATION: GENERAL: A well-nourished male, in no apparent distress. VITAL SIGNS: Within normal limits, included in the chart. LUNGS: Clear. HEART: Normal S1 and S2. ABDOMEN: Relatively soft. Nontender. No flank masses appreciated. DIAGNOSES: 1. Gross hematuria. 2. Right-sided hydronephrosis. 3. Right ureteral lesion. PLAN: As follows, we are going to perform a ureteroscopy and a biopsy today. Further plans will follow. The issue again is as follows. The patient has what looks like a low-grade transitional cell carcinoma, he has multiples in his bladder too. See the previous report. Pathology is already back, it is low-grade. If he has low-grade tumor in his ureter, must be decided what to do. Standard recommendations would be possibly nephroureterectomy done robotically if possible to just do a segmental ureterectomy in the region of the ureter with a short segment. The plan is as follows. 1. Today, we are going to do antibiotic prophylaxis. 2. Cystoscopy. 3. Ureteroscopy. 4. Biopsy. Further plans will follow. I discussed with the patient at length. I also asked him to be a little more compliant and little more follower. He is extremely pleasant that I have ever meet and he now need to be compliant. I explained the importance of follow up. He did not come back after his initial treatment only because he said he is having no more blood in there. Cong Espinal MD
== END 2018-05-24 18:44 | disposition home or self-care (01) ==
LOC: C.SDS 13:14
PROVIDERS: ATTEND Urology
DX: N20.0 Calculus of kidney (principal); N20.2 Calculus of kidney with calculus of ureter; N13.30 Unspecified hydronephrosis; C67.9 Malignant neoplasm of bladder, unspecified
CPT/HCPCS: 52332; 74018; 82948; 88305; C1725; C1758; J0696; J7070